=== PATIENT | male | born 1945 | race Caucasian/White ===

== ENCOUNTER 2017-05-18 11:18 | Outpatient (CLI) | payer MEDICARE, OTHER | END 2017-05-18 11:19 | disposition home or self-care (01) | LOC: SC 11:18 | PROVIDERS: ATTEND Nurse Practitioner Family | DX: G47.33 Obstructive sleep apnea (adult) (pediatric) (principal) | CPT/HCPCS: 99214; G0463; 99212 ==

== ENCOUNTER 2017-06-27 11:32 | Outpatient (CLI) | payer MEDICARE, OTHER | END 2017-06-27 11:33 | disposition home or self-care (01) | LOC: SC 11:32 | PROVIDERS: ATTEND Nurse Practitioner Family | DX: G47.33 Obstructive sleep apnea (adult) (pediatric) (principal) | CPT/HCPCS: 99213; G0463; 99212 ==

== ENCOUNTER 2018-06-27 10:07 | Outpatient (CLI) | payer MEDICARE, OTHER | END 2018-06-27 10:08 | disposition home or self-care (01) | LOC: SC 10:07 | PROVIDERS: ATTEND Nurse Practitioner Family | DX: G47.33 Obstructive sleep apnea (adult) (pediatric) (principal) | CPT/HCPCS: 99214; G0463; 99212 ==

== ENCOUNTER 2018-11-23 00:28 | Outpatient (CLI) | payer MEDICARE, OTHER | END 2018-11-23 00:29 | disposition critical access hospital (66) | LOC: EMS 00:28 | PROVIDERS: ATTEND Surgery | DX: R04.0 Epistaxis (principal) | CPT/HCPCS: A0425; A0429 ==

== ENCOUNTER 2018-11-23 00:43 | Emergency (ER) | payer MEDICARE, OTHER ==
--- NOTE | 2018-11-23 01:55 | ED Physician Documentation ---
PD HPI HEENT - Stated complaint Stated Complaint: EPISTAXIS - Chief complaint Chief Complaint: Heent - History obtained from History obtained from: Patient, EMS - History of Present Illness Timing - onset: Today (He has been having some nasal congestion with nose blowing over the last several days. Today he blew his nose and had a brief nosebleed which stopped after a few minutes. He then blew his nose again just about 1/2-hour before coming and had a significant nosebleed that did not stop with pinching. It did seem to taper some. But when he pinched his nose it then went from just the left side to the right side and down the back of his throat. He does not take any blood thinners.) Timing - duration: Minutes (30) Timing - details: Abrupt onset, Still present Location: Nose (Nosebleed from the left nostril.) Associated symptoms: Congestion. No: Fever, Swollen nodes Similar symptoms before: Has not had sx before Review of Systems Constitutional: denies: Fever Nose: reports: Rhinorrhea / runny nose, Congestion Throat: denies: Sore throat Respiratory: denies: Cough GI: denies: Nausea, Vomiting, Diarrhea Neurologic: denies: Focal weakness, Near syncope PD PAST MEDICAL HISTORY - Past Medical History Past Medical History: Yes Cardiovascular: Hypertension Respiratory: None Neuro: None Endocrine/Autoimmune: None GI: None : Benign prostate hypertrophy HEENT: None Psych: None Musculoskeletal: None Derm: None - Past Surgical History Past Surgical History: Yes General: Colonoscopy - Present Medications Home Medications: Ambulatory Orders Medication Instructions Recorded Confirmed Loratadine [Claritin] 10 mg PO 02/07/13 02/07/13 Multivitamin/Iron/Folic Acid 1 each PO 02/07/13 02/07/13 [Centrum Complete Multivit Tab] RX: Amlodipine Besylate 10 mg PO 02/07/13 02/07/13 RX: Carvedilol 25 mg PO 02/07/13 02/07/13 Sertraline [Zoloft] 100 mg PO DAILY 02/07/13 02/07/13 Simvastatin [Zocor] 20 mg PO 02/07/13 02/07/13 Telmisartan/Hydrochlorothiazid 1 each PO 02/07/13 02/07/13 [Micardis Hct 80-25 mg Tablet] Ubidecarenone [Co Q-10] 10 mg PO 02/07/13 02/07/13 Metformin HCl [Fortamet] 500 mg PO BID 07/24/13 07/24/13 Fluticasone [Flonase] 1 sprays ALCON DAILY #1 bottle 11/23/18 - Allergies Allergies/Adverse Reactions: Allergies Allergy/AdvReac Type Severity Reaction Status Date / Time sulfamethoxazole Allergy Unknown unknown Verified 11/23/18 02:12 [From Sulfamethoprim] trimethoprim Allergy Unknown unknown Unverified 02/06/13 13:40 [From Sulfamethoprim] - Social History Does the pt smoke?: No Smoking Status: Former smoker Does the pt drink ETOH?: Yes Does the pt have substance abuse?: No - Immunizations Immunizations are current?: Yes - POLST Patient has POLST: No PD ED PE NORMAL - Vitals Vital signs reviewed: Yes - General General: Alert and oriented X 3, Well developed/nourished, Other (The nosebleed has mainly stopped after pinching of his nostril from nursing triage to the time of my seeing him over a few minutes later.) - HEENT HEENT: Pharynx benign, Other (Left medial wall of the nares shows focal area of inflammation and there was raised blood vessel that was the source of bleeding. There is some mild mucosal inflammation generally in both nostrils otherwise. This the neck is supple without adenopathy.) - Neck Neck: Supple, no meningeal sign, No adenopathy - Derm Derm: Normal color, Warm and dry - Neuro Neuro: Alert and oriented X 3, No motor deficit, Normal speech Results - Vitals Vitals: Vital Signs - 24 hr 11/23/18 11/23/18 00:47 03:23 Temperature 37.2 C 36.6 C Heart Rate 94 85 Respiratory 20 20 Rate Blood Pressure 174/93 H 170/86 H O2 Saturation 93 93 Oxygen O2 Source Room air Procedures - Epistaxis Site: Left, Anterior Preparation: Clots removed, Lidocaine, Clamp / pressure applied Treatment: Silver Nitrate, Packing inserted Other: Observed - no bleeding, Pt tolerated well, O2 sat WNL Departure - Departure Disposition: 01 Home, Self Care Clinical Impression: Acute anterior epistaxis Condition: Stable Record reviewed to determine appropriate education?: Yes Instructions: Nosebleed Prescriptions: Fluticasone [Flonase] 1 sprays ALCON DAILY #1 bottle Comments: Leave the foam packing in the nostril until tomorrow dinnertime or evening before bed. You can moisten it slightly before pulling it out gently. Recheck if recurrent nosebleed. Once the packing is out, you can use some saline nose spray several times a day to help moisten the nasal passageway. He could also use a little Vaseline on a Q-tip once daily to the inside wall of the nose to keep it from being dried out as well. Follow-up with your primary care as needed regarding allergies. You could use steroid nasal spray daily to help reduce some of the nasal allergies you been having as well. Discharge Date/Time: 11/23/18 03:31
[2018-11-23] MEDS ORDERED: TRANEXAMIC ACID 1,000 MG/10 ML VIAL NAS STA (02:00)
[2018-11-23 03:25] VITALS: BP 170/86
== END 2018-11-23 03:31 | disposition home or self-care (01) ==
LOC: EDUNIT# → ED 00:43
DX: R04.0 Epistaxis (principal)
CPT/HCPCS: 99283

== ENCOUNTER 2018-11-23 19:34 | Emergency (ER) | payer MEDICARE, OTHER ==
[2018-11-23 19:42] VITALS: BP 160/89
--- NOTE | 2018-11-23 19:51 | ED Physician Documentation ---
PD HPI HEENT - Stated complaint Stated Complaint: NOSE BLEED - Chief complaint Chief Complaint: Heent - History obtained from History obtained from: Patient - History of Present Illness Timing - onset: Today (Seen here for a nosebleed yesterday, was cauterized and had packing in place. He was advised to remove the packing today and everything was going okay until just prior to arrival and it started bleeding again.) Review of Systems Constitutional: denies: Fever, Chills Ears: denies: Ear pain Nose: reports: Rhinorrhea / runny nose, Congestion, Epistaxis PD PAST MEDICAL HISTORY - Past Medical History Past Medical History: Yes Cardiovascular: Hypertension Respiratory: None Neuro: None Endocrine/Autoimmune: None GI: None : Benign prostate hypertrophy HEENT: None Psych: None Musculoskeletal: None Derm: None - Past Surgical History Past Surgical History: Yes General: Colonoscopy - Present Medications Home Medications: Ambulatory Orders Medication Instructions Recorded Confirmed Amlodipine Besylate 10 mg PO 02/07/13 02/07/13 Carvedilol 25 mg PO 02/07/13 02/07/13 Loratadine [Claritin] 10 mg PO 02/07/13 02/07/13 Multivitamin/Iron/Folic Acid 1 each PO 02/07/13 02/07/13 [Centrum Complete Multivit Tab] Sertraline [Zoloft] 100 mg PO DAILY 02/07/13 02/07/13 Simvastatin [Zocor] 20 mg PO 02/07/13 02/07/13 Telmisartan/Hydrochlorothiazid 1 each PO 02/07/13 02/07/13 [Micardis Hct 80-25 mg Tablet] Ubidecarenone [Co Q-10] 10 mg PO 02/07/13 02/07/13 Metformin HCl [Fortamet] 500 mg PO BID 07/24/13 07/24/13 Fluticasone [Flonase] 1 sprays ALCON DAILY #1 bottle 11/23/18 - Allergies Allergies/Adverse Reactions: Allergies Allergy/AdvReac Type Severity Reaction Status Date / Time sulfamethoxazole Allergy Unknown unknown Verified 11/23/18 19:40 [From Sulfamethoprim] trimethoprim Allergy Unknown unknown Verified 11/23/18 19:40 [From Sulfamethoprim] - Social History Does the pt smoke?: No Smoking Status: Never smoker Does the pt drink ETOH?: Yes Does the pt have substance abuse?: No - Immunizations Immunizations are current?: Yes - POLST Patient has POLST: No PD ED PE NORMAL - Vitals Vital signs reviewed: Yes - General General: Alert and oriented X 3, No acute distress - HEENT HEENT: Other (Active bleeding from a knuckle of vein on L keisselbach's plexus) - Neuro Neuro: Alert and oriented X 3, Normal speech Results - Vitals Vitals: Vital Signs - 24 hr 11/23/18 19:38 Temperature 36.6 C Heart Rate 88 Respiratory 18 Rate Blood Pressure 160/89 H O2 Saturation 94 Oxygen O2 Source Room air Procedures - Epistaxis Site: Left, Anterior Preparation: Clots removed Treatment: Silver Nitrate Other: Observed - no bleeding, Pt tolerated well Departure - Departure Disposition: 01 Home, Self Care Clinical Impression: Acute anterior epistaxis Condition: Good Record reviewed to determine appropriate education?: Yes Instructions: Nosebleed Comments: Followup with your ENT next week, return for new or worsening symptoms.
== END 2018-11-23 20:27 | disposition home or self-care (01) ==
LOC: ED 19:34
DX: R04.0 Epistaxis (principal); I10 Essential (primary) hypertension
CPT/HCPCS: 30901; 99283

== ENCOUNTER 2019-07-23 08:30 | Outpatient (CLI) | payer MEDICARE, OTHER ==
--- NOTE | 2019-07-23 09:38 | SLEEP CARE CONSULTATION ---
Information from patient questionnaire entered by Maricruz Rosales. I have reviewed and concur with the information entered by Maricruz Rosales. This document represents the service I personally performed and the decisions made by me, Anna Kelsey, RN, MSN, [employer]. History of Present Illness Previous diagnosis: Severe, Obstructive Sleep Apnea-Hypopnea Syndrome AHI: 38.6 Reason for follow up: annual (last seen 2018) Equipment type: CPAP Equipment obtained from: [facility] (having difficulty getting supplies despite repeated attempts and would like to transfer.) Mask style: Nasal (Wisp) Mask brand: Respironics Backup mask available: Yes Last cushion change: 1 month ago - but tries to change every 2 weeks. CPAP Compliance Data - Data Reviewed with Patient Average duration of nightly device use: 7.8 Compliance rate %: 98.9 (180 days) Current pressure setting (cmH2O): 15-17 Humidity settin Heated hose settin Average residual AHI: 3.3 Average large leak: 1 hr 5 min 52 sec Subjective Patient concerns: reports: air blowing in eyes (when mask headgear wears out. ), dry mouth, nose, throat (mild but prefers not to use the humidity. ), epistaxis (severe 6 months ago and was cauterized with no recurrence), other (headgear seems to wear out before can be replaced both in mask body and velcro ). denies: aerophagia, mask discomfort, mask leak noise, condensation in mask/hose, nasal congestion Observed to snore while using device: No Current pressure setting perceived as: comfortable On therapy, patient: reports: sleeping better, awakening more refreshed, being more awake and alert during the day, more rested overall. denies: drowsiness while driving Initial [place] Sleepiness Scale score: 16 Current [place] Sleepiness Scale score: 13 Allergies and Home Medications Known drug allergies: Yes Drug allergies reviewed: Yes Home medication list reviewed: Yes (see list / changes made) Allergy and home medication list: Co Q10 10mg daily Telmisartan / hydrochlothiazide 80/25mg daily Simvastatin 20mg daily Centrum daily Meformin 500mg bid loratadine 10mg daily Fluticasone daily nasal spray Carvediolol 25mg daily Amlodipine 10mg dialy aspirin 81 mg daily gabapentin 300mg 2 at bedtime. Review of Systems Review of systems same as previous: Yes Physical Exam Blood Pressure: 150/80 Cuff size: long Heart Rate: 81 O2 Saturation: 95 Height: 5 ft 10.5 in Weight: 316 lb Weight change since last visit: gained 3 pounds Body Mass Index: 44.6 BMI Classification: Obesity Class 3 Impression and Plan 1. Obstructive Sleep Apnea-Hypopnea Syndrome, severe, with good treatment compliance and good apnea control. On CPAP therapy, the patient has better sleep quality and is more rested overall. Since he does not use the humidity, I advised to use the sample of saline nasal spray to use prior to CPAP and as needed during the day. For his headgear concerns, I showed him other styles. All seemed to have similar headgear. Thus I advised how can add velcro to his old ones if needed for better connection. He could also buy online out of pocket if headgear too worn before due for insurance. He is also encouraged to change his mask cushions every 2 weeks when able to get supplies to maintain seal to reduce mask leaks. Washing mask daily instead of every few days can also improve seal. For convenience he can buy CPAP wipes. Since he is having difficulty getting supplies, I will have him discuss his other DME options and a DWO will be written. He can track the mask leaks on his CPAP as shown. It is hoped that his mask will fit better and reduce mask leaks to disrupt his sleep. Patient's apnea severity and rationale for treatment to reduce apnea, improve sleep quality and reduce cardiovascular and cerebrovascular events was reviewed. I also reviewed the benefit of consistent device use of CPAP for hypertension, cardiac disease, diabetes. We also discussed his weight and how it affects his apnea risk and CPAP requirements as well as overall health. He was advised to lose weight. He can discuss with PCP his weight loss goals. * Continue CPAP pressure at 15-17 cmH2O * Transfer of Care * Implement methods to reduce mask leaks. * Notify me if snoring with mask or feeling that the pressure is too much or too little * Attempt to lose weight * Call this office if any problems using CPAP * Return for follow up in 1 year, or sooner if concerns arise Time Spent with Patient (minutes): 30 I spent 100% of this visit face to face with the patient with greater than 50% of this was spent time counseling the patient and coordination of care.
[2019-07-23 09:39] VITALS: BP 150/80
== END 2019-07-23 08:31 | disposition home or self-care (01) ==
LOC: SC 08:30
PROVIDERS: ATTEND Nurse Practitioner Family
DX: G47.33 Obstructive sleep apnea (adult) (pediatric) (principal); E66.9 Obesity, unspecified; Z68.41 Body mass index [BMI] 40.0-44.9, adult
CPT/HCPCS: 99214; G0463; 99212

== ENCOUNTER 2020-08-06 16:22 | Outpatient (CLI) | payer MEDICARE, OTHER ==
--- NOTE | 2020-08-06 15:05 | SLEEP CARE CONSULTATION ---
Information from patient questionnaire entered by Maricruz Rosales. I have reviewed and concur with the information entered by Maricruz Rosales. This document represents the service I personally performed and the decisions made by me, Anna Kelsey, RN, MSN, DIRECTOR OF PROVIDER RELATIONS. History of Present Illness Service Date and Time: 08/06/2020 1430 Previous diagnosis: Severe, Obstructive Sleep Apnea-Hypopnea Syndrome AHI: 38.6 (in 2014) Reason for follow up: annual (last seen 07/2019) Equipment type: CPAP Equipment obtained from: [employer] (transfer went well - getting supplies as needed) Mask style: Nasal Mask brand: Respironics (Wisp) Backup mask available: Yes (old mask with headgear ) Prior sleep studies: Yes Year and Where: 2014 - [facility] Sleep Type of Sleep Study: Polysomnography CPAP Compliance Data - Data Reviewed with Patient Average duration of nightly device use: 8 hr 5 min Compliance rate %: 98.9 (180 days) Current pressure setting (cmH2O): 15-17 Humidity settin Heated hose settin Average residual AHI: 2.5 Average large leak: 38 min Subjective Patient concerns: reports: air blowing in eyes (when mask gets old ), nasal congestion (chronic but doesnt interfer CPAP use), other (stopped humidity use long time ago and no further epitaxis since cauterization last year.). denies: aerophagia (rationale discussed why to call office if symptoms ), mask discomfort, mask leak noise, condensation in mask/hose, dry mouth, nose, throat, epistaxis Observed to snore while using device: No Current pressure setting perceived as: comfortable On therapy, patient: reports: sleeping better, awakening more refreshed, being more awake and alert during the day, more rested overall. denies: drowsiness w hile driving Initial [place] Sleepiness Scale score: 16 (in 2015) Allergies and Home Medications Known drug allergies: Yes Home medication list reviewed: No (no changes ) Review of Systems Review of systems same as previous: No (increased fatigue/ thirst and urination ) Physical Exam Height: 5 ft 10.5 in Weight: 316 lb (no change) Body Mass Index: 44.6 BMI Classification: Morbidly Obese Impression and Plan 1. Obstructive Sleep Apnea-Hypopnea Syndrome, severe, with good treatment compliance and good apnea control. On CPAP therapy, the patient has better sleep quality and is more rested overall. To reduce mask leaks, patient advised change cushions more often. I also reviewed again how he can add extra velcro to his headgear when it wears out or buy another out of pocket. Nasal congestion can be reduced with restarting the CPAP humidity as discussed. Saline nasal spray sample was also given to use prior to CPAP to clear nasal secretions and wash off any nasal allergens to facilitate nasal breathing. In addition, a steamy shower before bed will often assist nasal drainage. Patient's apnea severity and rationale for treatment to reduce apnea, improve sleep quality and reduce cardiovascular and cerebrovascular events was reviewed. I also reviewed the benefit of consistent device use of CPAP for hypertension. Because patient has significant apnea in supine and unknown in other positions of sleep, if unable to use CPAP due to illness of lack of electricity, patient advised to raise head of bed 30-40 degrees to decrease some apnea risk. Patient states he has slept in a recliner with head raised slightly for 25 years and rarely sleeps on his side due to discomfort. 2. Fatigue, reports extreme fatigue for past few days and slept most of day with CPAP 12 hours use noted on compliance. States fatigue now better. No temperature. No sore throat. But he has started drinking a lot of water and urinating every hour at night and day for several days. His appetite is also diminished. Thus I advised patient to contact his provider today or go to urgent care today with rationale discussed. I explained that he need to be checked for high blood sugar or other medical condition. Patient states " pre diabetic and takes metformin, no increase in weight. " He agreed with plan and will call Dr Hogue after this visit and told to inform of symptoms. I informed him I would also call to inform office of reason he needs to be seen ARVIND. * Continue auto CPAP pressure at 15-17 cmH2O * Notify me if snoring with mask or feeling that the pressure is too much or too little * Attempt to lose weight * Follow up with PCP or urgent care today * Call this office if any problems using CPAP * Return for follow up in 1 year , or sooner if concerns arise * * Addendum: 1511 I called the patient's PCP office and spoke to Shayna and notified that I advised patient to call office to be seen today by PCP or in urgent care. I explained that I was concerned he was exhibiting signs of high blood sugar and symptoms given. She stated patient called but did not state why and appointment made office. She will call back and schedule with a PA today. * Counseling Topics: Sleeping position Visit Type: Telehealth Phone (doximity) Patient Location: Home Location of Provider: Home Patient agrees and consents to this telehealth visit type: Yes Patient agrees to have their insurance billed: Yes Time Spent with Patient (minutes): 30 plus 5 minutes call to PCP and 10 minutes additional documentation. Provider Statement: I spent 100% of the Telehealth Phone Call with the patient with greater than 50% spent counseling the patient and coordination of care.
== END 2020-08-06 16:23 | disposition home or self-care (01) ==
LOC: SC 16:22
PROVIDERS: ATTEND Nurse Practitioner Family
DX: G47.33 Obstructive sleep apnea (adult) (pediatric) (principal); E66.01 Morbid (severe) obesity due to excess calories; Z68.41 Body mass index [BMI] 40.0-44.9, adult; R53.83 Other fatigue

== ENCOUNTER 2021-04-02 10:51 | Outpatient (CLI) | payer MEDICARE, OTHER ==
--- NOTE | 2021-04-02 11:24 | SLEEP CARE CONSULTATION ---
Information from patient questionnaire entered by Maricruz Rosales. I have reviewed and concur with the information entered by Maricruz Rosales. This document represents the service I personally performed and the decisions made by , Alissa Grubbs ARNP. History of Present Illness Service Date and Time: 04/02/2021 1051 Previous diagnosis: Severe, Obstructive Sleep Apnea-Hypopnea Syndrome AHI: 38.6 (in 2014) Reason for follow up: other (8 month - CPAP recall) Equipment type: CPAP Equipment obtained from: [employer] (getting supplies as needed, cant take a couple weeks to get them) Mask style: Nasal (over the nose) Backup mask available: Yes (old mask) Last cushion change: 2 weeks Prior sleep studies: Yes Year and Where: 2014 - Located [facility] Sleep Type of Sleep Study: Polysomnography HPI additional information: KAROL MORRISON was diagnosed to have severe, AHI 38.6, obstructive sleep apnea- hypopnea syndrome and returned today for CPAP therapy 8 month follow-up. CPAP Compliance Data - Data Reviewed with Patient Average duration of nightly device use: 8 hours 14 minutes Compliance rate %: 98.9 Current pressure setting (cmH2O): 15-17 Humidity settin Heated hose settin Average residual AHI: 2.2 Average large leak: 11 minutes 3 seconds Subjective Patient concerns: reports: air blowing in eyes (when headgear gets stretched out it will leak in his eyes). denies: aerophagia, mask discomfort, mask leak noise, condensation in mask/hose, nasal congestion, dry mouth, nose, throat, epistaxis, other Observed to snore while using device: No Current pressure setting perceived as: too low On therapy, patient: reports: sleeping better, awakening more refreshed, being m ore awake and alert during the day, more rested overall. denies: drowsiness while driving Initial [place] Sleepiness Scale score: 16 (in 2015) Current [place] Sleepiness Scale score: 15 Allergies and Home Medications Home medication list reviewed: Yes (no changes) Review of Systems Review of systems same as previous: Yes (no changes) Physical Exam Heart Rate: 81 O2 Saturation: 97 Height: 5 ft 10 in Weight: 300 lb Body Mass Index: 43.0 BMI Classification: Morbidly Obese Impression and Plan 1. Obstructive Sleep Apnea-Hypopnea Syndrome, severe, with good treatment compliance and good apnea control. On CPAP therapy, the patient has better sleep quality and is more rested overall. Patient cannot sleep without his device and he states he heard about the recall and would like to get a new updated device. Patient was encouraged to register their device online with [employer] for the recall to see if their device is affected. If their device is affected they should start a claim. Patient denies any black particles seen in machine or hoses, any unusual odors coming from device. Patient has not experienced any physical symptoms such as upper airway irritation, headache, skin or eye irritation, asthma, nausea/vomiting, difficulty breathing or chest pain. Since the patients current machine is at least 5 years old the patient is opting to update their device with a device that is not on the recall. Patient voiced understanding and agreement with plan. Patient feels that his pressure is a little low and would like a little more pressure. I will adjust his pressure to 15-18 cmH2O. Patient was encouraged to lose weight for their overall health and to reduce apneas. Patient has a lot of back pain and this limits his ability to exercise. I encouraged him to try to make better, more nutritious food choices. Patient voiced understanding and agreement with plan. Patient's apnea severity and rationale for treatment to reduce apnea, improve sleep quality and reduce cardiovascular and cerebrovascular events was reviewed. I also reviewed the benefit of consistent device use of CPAP for hypertension. * Update device and supplies * Change auto CPAP pressure to 15-18 cmH2O * Notify me if snoring with mask or feeling that the pressure is too much or too little * Attempt to lose weight * Call this office if any problems using CPAP * Return for follow up one month after obtaining new device, or sooner if concerns arise Counseling Topics: Spare mask, Weight loss health impact Visit Type: In Office Time Spent with Patient (minutes): 22 Provider Statement: I spent 100% of the Face to Face Visit with the patient with greater than 50% spent counseling the patient and coordination of care.
== END 2021-04-02 10:52 | disposition home or self-care (01) ==
LOC: SC 10:51
PROVIDERS: ATTEND Nurse Practitioner Family
DX: G47.33 Obstructive sleep apnea (adult) (pediatric) (principal); E66.01 Morbid (severe) obesity due to excess calories; Z68.41 Body mass index [BMI] 40.0-44.9, adult
CPT/HCPCS: 99213; G0463; 99212

== ENCOUNTER 2021-06-25 03:21 | Outpatient (CLI) | payer MEDICARE, OTHER | END 2021-06-25 03:22 | disposition critical access hospital (66) | LOC: EMS 03:21 | DX: U07.1 COVID-19 (principal) | CPT/HCPCS: A0425; A0429 ==

== ENCOUNTER 2021-06-25 03:41 | Inpatient (IN) | payer MEDICARE, OTHER ==
--- NOTE | 2021-06-25 03:41 | ED Physician Documentation ---
PD HPI DYSPNEA - Stated complaint Stated Complaint: C+/SOA - History obtained from History obtained from: Patient, EMS - History of Present Illness Timing - onset: How many weeks ago (2) Timing - details: Gradual onset, Constant Pain level max: 0 Pain level now: 0 Improved by: O2, Rest Associated symptoms: Fever, Cough. No: Chest pain / discomfort Similar symptoms before: Has not had sx before Recently seen: Not recently seen - Additional information Additional information: BIBA for chief complaint of dyspnea x 2 weeks, steadily worsening since onset. At symptom onset, he took a home COVID-19 test which patient says was positive for COVID. EMS note that patient's pulse ox was 85% on room air on their arrival, improved to 94-95% with 6 liters oxygen via NC. Patient uses CPAP for sleep apnea but otherwise does not have pulmonary diagnoses such as asthma or COPD and does not use oxygen at home. He is not COVID vaccinated Review of Systems Constitutional: reports: Fever, Chills, Sweats Eyes: reports: Reviewed and negative Ears: reports: Reviewed and negative Nose: reports: Reviewed and negative Throat: reports: Reviewed and negative Cardiac: reports: Reviewed and negative Respiratory: reports: Dyspnea, Cough. denies: Hemoptysis, Wheezing GI: reports: Reviewed and negative : reports: Reviewed and negative Skin: reports: Reviewed and negative Musculoskeletal: reports: Reviewed and negative Neurologic: reports: Reviewed and negative PD PAST MEDICAL HISTORY - Past Medical History Past Medical History: Yes Cardiovascular: Hypertension, High cholesterol Endocrine/Autoimmune: Type 1 diabetes - Past Surgical History Past Surgical History: No - Present Medications Home Medications: Ambulatory Orders Medication Instructions Recorded Confirmed Amlodipine Besylate 10 mg PO DAILY 02/07/13 08/18/20 Carvedilol 25 mg PO BID 02/07/13 08/18/20 Loratadine [Claritin] 10 mg PO BID 02/07/13 08/18/20 Multivitamin/Iron/Folic Acid 1 each PO DAILY 02/07/13 08/18/20 [Centrum Complete Multivit Tab] Simvastatin [Zocor] 20 mg PO DAILY 02/07/13 08/18/20 Ubidecarenone [Co Q-10] 100 mg PO DAILY 02/07/13 08/18/20 Metformin HCl [Fortamet] 1,000 mg PO BID 07/24/13 08/18/20 Aspirin [Nagi] 325 mg PO DAILY 08/18/20 08/18/20 Gabapentin [Neurontin] 600 mg PO DAILY 08/18/20 08/18/20 Telmisartan [Micardis] 80 mg PO DAILY 08/18/20 08/18/20 hydroCHLOROthiazide 25 mg PO DAILY 08/18/20 08/18/20 [Hydrochlorothiazide] Insulin Glargine [Lantus Solostar] 15 units .ROUTE QPM 06/25/21 - Allergies Allergies/Adverse Reactions: Allergies Allergy/AdvReac Type Severity Reaction Status Date / Time sulfamethoxazole Allergy Intermediate Hives Verified 06/25/21 04:44 [From Sulfamethoprim] trimethoprim Allergy Unknown unknown Verified 06/25/21 04:44 [From Sulfamethoprim] - Living Situation Living Situation: reports: With spouse/s.o. Living Arrangement: reports: At home PD ED PE NORMAL - Vitals Vital signs reviewed: Yes - General General: Alert and oriented X 3, Other (obese; tachypneic but able to speak in full sentences. appears anxious) - Cardiac Cardiac: RRR, No murmur - Abdomen Abdomen: Soft, Non tender - Derm Derm: Normal color, Warm and dry PD ED PE EXPANDED - Respiratory Respiratory: Decreased breath sounds, Other (course breath sounds bilaterally) - Extremities Extremities: Pedal edema bilateral Results - Vitals Vitals: Vital Signs - 24 hr 06/25/21 06/25/21 06/25/21 03:46 03:57 04:17 Temperature 38.5 C H Heart Rate 90 88 Respiratory 29 H 29 H 25 H Rate Blood Pressure 160/90 H 160/90 H O2 Saturation 96 96 97 Oxygen O2 Source Nasal cannula Oxygen Flow Rate 6 - EKG (time done) No standard instances Rate: Rate (enter#) (85) Rhythm: NSR Harper: LAD Intervals: Normal NM QRS: Normal Ischemia: Normal ST segments - Labs Labs: Laboratory Tests 06/25/21 06/25/21 06/25/21 04:03 04:03 04:03 WBC 5.9 RBC 3.90 L Hgb 11.5 L Hct 33.3 L MCV 85.4 MCH 29.5 MCHC 34.5 RDW 14.8 Plt Count 227 MPV 10.7 Neut # (Auto) 4.7 Lymph # (Auto) 0.8 L Williamson # (Auto) 0.3 Eos # (Auto) 0.0 Baso # (Auto) 0.0 Absolute Nucleated RBC 0.00 Nucleated RBC % 0.0 Sodium 137 Potassium 2.7 L Chloride 93 L Carbon Dioxide 27 Anion Gap 17.0 H BUN 46 H Creatinine 1.3 H Estimated GFR (MDRD) 54 L Glucose 145 H Calcium 8.5 Total Bilirubin 1.1 H AST 57 H ALT 32 Alkaline Phosphatase 70 Troponin I High Sens 40.1 H* Total Protein 6.9 Albumin 3.7 Globulin 3.2 Albumin/Globulin Ratio 1.2 Lipase 41 Nasal Adenovirus (PCR) Nasal B. parapertussis DNA (PCR) Nasal Coronavir 229E PCR Nasal Coronavir HKU1 PCR Nasal Coronavir NL63 PCR Nasal Coronavir OC43 PCR Nasal Enterovir/Rhinovir PCR Nasal Influenza B PCR Nasal Influenza A PCR Nasal Parainfluen 1 PCR Nasal Parainfluen 2 PCR Nasal Parainfluen 3 PCR Nasal Parainfluen 4 PCR Nasal RSV (PCR) Nasal B.pertussis DNA PCR Nasal C.pneumoniae (PCR) Antonio Human Metapneumo PCR Nasal M.pneumoniae (PCR) Nasal SARS-CoV-2 (PCR) 06/25/21 04:05 WBC RBC Hgb Hct MCV MCH MCHC RDW Plt Count MPV Neut # (Auto) Lymph # (Auto) Williamson # (Auto) Eos # (Auto) Baso # (Auto) Absolute Nucleated RBC Nucleated RBC % Sodium Potassium Chloride Carbon Dioxide Anion Gap BUN Creatinine Estimated GFR (MDRD) Glucose Calcium Total Bilirubin AST ALT Alkaline Phosphatase Troponin I High Sens Total Protein Albumin Globulin Albumin/Globulin Ratio Lipase Nasal Adenovirus (PCR) NOT DETECTED Nasal B. parapertussis DNA (PCR) NOT DETECTED Nasal Coronavir 229E PCR NOT DETECTED Nasal Coronavir HKU1 PCR NOT DETECTED Nasal Coronavir NL63 PCR NOT DETECTED Nasal Coronavir OC43 PCR NOT DETECTED Nasal Enterovir/Rhinovir PCR NOT DETECTED Nasal Influenza B PCR NOT DETECTED Nasal Influenza A PCR NOT DETECTED Nasal Parainfluen 1 PCR NOT DETECTED Nasal Parainfluen 2 PCR NOT DETECTED Nasal Parainfluen 3 PCR NOT DETECTED Nasal Parainfluen 4 PCR NOT DETECTED Nasal RSV (PCR) NOT DETECTED Nasal B.pertussis DNA PCR NOT DETECTED Nasal C.pneumoniae (PCR) NOT DETECTED Antonio Human Metapneumo PCR NOT DETECTED Nasal M.pneumoniae (PCR) NOT DETECTED Nasal SARS-CoV-2 (PCR) DETECTED A - Rads (name of study) chest xray Radiology: Prelim report reviewed, See rad report PD MEDICAL DECISION MAKING - ED course Complexity details: reviewed results, re-evaluated patient, considered differential, d/w patient ED course: Respiratory PCR confirms patient is COVID positive. 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 CXR shows bilateral streaky infiltrates. Given decadron IV as well as IV ofirmev for fever. D/W Dr. Fermin, will admit for futher treatment and observation Departure - Departure Disposition: [facility] DC/Xfer Clinical Impression: Pneumonia due to COVID-19 virus Condition: Serious Discharge Date/Time: 06/25/21 05:52
[2021-06-25] MEDS ORDERED: DEXAMETHASONE 10 MG/ML VIAL IVP STA (03:52)
[2021-06-25 04:11] LABS: BASOPHILS % (AUTO) 0.2 %; HCT - HEMATOCRIT 33.3 % (42.0-52.0); HGB - HEMOGLOBIN 11.5 g/dL (14.0-18.0); LYMPHOCYTES # (AUTO) 0.8 10^3/uL (1.5-3.5); LYMPHOCYTES % (AUTO) 13.7 %; MEAN CORPUSCULAR HEMOGLOBIN 29.5 pg (27.0-31.0); MEAN CORPUSCULAR HGB CONC 34.5 g/dL (32.0-36.0); MEAN CORPUSCULAR VOLUME 85.4 fL (80.0-94.0); MEAN PLATELET VOLUME 10.7 fL (7.4-11.4); MONOCYTES # (AUTO) 0.3 10^3/uL (0.0-1.0); MONOCYTES % (AUTO) 4.9 %; NEUTROPHILS # (AUTO) 4.7 10^3/uL (1.5-6.6); NEUTROPHILS % (AUTO) 80.4 %; PLT - PLATELET COUNT 227 10^3/uL (130-450); RED CELL DISTRIBUTION WIDTH 14.8 % (12.0-15.0); WHITE BLOOD COUNT 5.9 x10^3/uL (4.8-10.8)
[2021-06-25] MEDS ORDERED: ONDANSETRON 4 MG/2 ML VIAL IVP PRN (04:24)
[2021-06-25] MEDS ORDERED: SODIUM CHLORIDE FLUSH 0.9% 10 ML SYRINGE IVP PRN (04:24)
[2021-06-25] MEDS ORDERED: ONDANSETRON ODT 4 MG TABLET TL PRN (04:24)
[2021-06-25] MEDS ORDERED: ACETAMINOPHEN 1,000 MG/100 ML 100 ML IV STA (04:24)
[2021-06-25 04:31] LABS: ALBUMIN 3.7 g/dL (3.2-5.5); ALBUMIN/GLOBULIN RATIO 1.2 (1.0-2.2); BILIRUBIN,TOTAL 1.1 mg/dL (0.2-1.0); CALCIUM 8.5 mg/dL (8.5-10.3); CREATININE 1.3 mg/dL (0.6-1.2); POTASSIUM 2.7 mmol/L (3.5-5.0); TOTAL PROTEIN 6.9 g/dL (6.7-8.2)
[2021-06-25] MEDS ORDERED: POTASSIUM CHLORIDE 20 MEQ TABLET PO STA (04:33)
[2021-06-25 05:07] LABS: CORONAVIRUS 229E-RESP PCR NOT DETECTED; CORONAVIRUS HKU1-RESP PCR NOT DETECTED; CORONAVIRUS NL63-RESP PCR NOT DETECTED; CORONAVIRUS OC43-RESP PCR NOT DETECTED
[2021-06-25 05:08] LABS: B. PARAPERTUSSIS- RESP PCR PAN NOT DETECTED; B. PERTUSSIS- RESP PCR PANEL NOT DETECTED; C. PNEUMONIAE- RESP PCR PANEL NOT DETECTED; HUMAN METAPNEUMOVIRUS NOT DETECTED; INFLUENZA A- RESP PCR PANEL NOT DETECTED; INFLUENZA B - RESP PCR PANEL NOT DETECTED; M. PNEUMONIAE- RESP PCR PANEL NOT DETECTED; PARAINFLUENZA VIRUS 1 NOT DETECTED; PARAINFLUENZA VIRUS 2 NOT DETECTED; PARAINFLUENZA VIRUS 3 NOT DETECTED; PARAINFLUENZA VIRUS 4 NOT DETECTED; RHINOVIRUS/ENTEROVIRUS NOT DETECTED; RSV- RESP PCR PANEL NOT DETECTED; SARS-CoV-2 -RESP PCR PANEL DETECTED
[2021-06-25 05:28] LABS: BASOPHILS % (AUTO) 0.1 %; EOSINOPHILS % (AUTO) 0.1 %; HCT - HEMATOCRIT 35.6 % (42.0-52.0); HGB - HEMOGLOBIN 12.1 g/dL (14.0-18.0); LYMPHOCYTES # (AUTO) 0.8 10^3/uL (1.5-3.5); LYMPHOCYTES % (AUTO) 10.8 %; MEAN CORPUSCULAR HEMOGLOBIN 29.4 pg (27.0-31.0); MEAN CORPUSCULAR VOLUME 86.6 fL (80.0-94.0); MEAN PLATELET VOLUME 10.9 fL (7.4-11.4); MONOCYTES # (AUTO) 0.3 10^3/uL (0.0-1.0); MONOCYTES % (AUTO) 4.1 %; NEUTROPHILS # (AUTO) 5.9 10^3/uL (1.5-6.6); NEUTROPHILS % (AUTO) 84.1 %; PLT - PLATELET COUNT 229 10^3/uL (130-450); RED BLOOD COUNT 4.11 10^6/uL (4.70-6.10); WHITE BLOOD COUNT 7.1 x10^3/uL (4.8-10.8)
[2021-06-25 05:36] LABS: CALCIUM 8.5 mg/dL (8.5-10.3); CREATININE 1.2 mg/dL (0.6-1.2); POTASSIUM 2.8 mmol/L (3.5-5.0)
[2021-06-25 05:52] LABS: CRP - C-REACTIVE PROTEIN 4.5 mg/dL (0-1.0)
--- NOTE | 2021-06-25 06:51 | HISTORY & PHYSICAL EXAMINATION ---
Chief Complaint - Chief Complaint Chief Complaint: Shortness of breath. History of Present Illness - Admitted From Admitted From:: Home - History Obtained From Records Reviewed: Yes History obtained from: Patient, ER Physician, EMR - History of Present Illness HPI Comment/Other: This is a 76-year-old male with a past medical history significant for hypertension and insulin-dependent diabetes mellitus, KATERINA on CPAP who presents today complaining of worsening shortness of breath. He states he was diagnosed with Covid about 2 weeks ago. At that time, his daughter and son-in-law were also ill with Covid. He states he began to feel short of breath but it has worsened over the past 2 weeks and so he came to the emergency department early this morning. He is not vaccinated. He reports having a poor appetite and decreased oral intake over the past 2 weeks. This past week he stopped taking his insulin because he was not eating very much and just felt miserable overall. He also has not been taking his home antihypertensives over the past week just due to feeling unwell. He states he does have KATERINA and is compliant with his CPAP. He must use it whenever he sleeps well she wakes up in chills and sweats. He denies any cardiac history including CHF, coronary artery disease. His legs are a little edematous and states this is his baseline. In the emergency department, he was noted to be febrile and hypoxic initially requiring 6 L of oxygen. Chest x-ray was consistent with pneumonia. He was given Decadron and medicine was consulted for admission. We discussed goals of care and he would like to be a DNR although he is okay with intubation as long as it is temporary. He would not want prolonged mechanical ventilation. History - Past Medical History Cardiovascular: reports: Hypertension, High cholesterol Respiratory: reports: Sleep apnea Neuro: reports: None Endocrine/Autoimmune: reports: Type 2 diabetes GI: reports: GERD : reports: Benign prostate hypertrophy HEENT: reports: None Psych: reports: None Musculoskeletal: reports: None Derm: reports: None MRSA Hx?: No - Past Surgical History General: reports: Colonoscopy - Family & Social History Family History Comment/Other: He reports both his parents had diabetes otherwise denies any other medical history. Living arrangement: At home Living Situation: With family Social History Notes: He lives with his , daughter, son-in-law, and granddaughter. He did smoke a pack a day for 10 years but quit 40 years ago. He denies alcohol use. - POLST Patient has POLST: No Meds/Allgy - Home Medications Home Medications: Ambulatory Orders Medication Instructions Recorded Confirmed Amlodipine Besylate 10 mg PO DAILY 02/07/13 08/18/20 Carvedilol 25 mg PO BID 02/07/13 08/18/20 Loratadine [Claritin] 10 mg PO BID 02/07/13 08/18/20 Multivitamin/Iron/Folic Acid 1 each PO DAILY 02/07/13 08/18/20 [Centrum Complete Multivit Tab] Simvastatin [Zocor] 20 mg PO DAILY 02/07/13 08/18/20 Ubidecarenone [Co Q-10] 100 mg PO DAILY 02/07/13 08/18/20 Metformin HCl [Fortamet] 1,000 mg PO BID 07/24/13 08/18/20 Aspirin [Nagi] 325 mg PO DAILY 08/18/20 08/18/20 Gabapentin [Neurontin] 600 mg PO DAILY 08/18/20 08/18/20 Telmisartan [Micardis] 80 mg PO DAILY 08/18/20 08/18/20 hydroCHLOROthiazide 25 mg PO DAILY 08/18/20 08/18/20 [Hydrochlorothiazide] Insulin Glargine [Lantus Solostar] 15 units .ROUTE QPM 06/25/21 - Allergies Allergies/Adverse Reactions: Allergies Allergy/AdvReac Type Severity Reaction Status Date / Time sulfamethoxazole Allergy Intermediate Hives Verified 06/25/21 04:44 [From Sulfamethoprim] trimethoprim Allergy Unknown unknown Verified 06/25/21 04:44 [From Sulfamethoprim] Review of Systems - Constitutional Constitutional: reports: Fatigue, Fever, Chills, Malaise, Poor appetite - Ears, Nose & Throat Ears, Nose & Throat: denies: Nasal discharge, Nasal congestion, Sore throat - Cardiovascular Cariovascular: reports: Edema, Lightheadedness, Exertional dyspnea, Decr. exercise tolerance. denies: Chest pain - Respiratory Respiratory: reports: Cough, SOB at rest, SOB with exertion. denies: Sputum production - Gastrointestinal Gastrointestinal: reports: Diarrhea, Poor appetite. denies: Abdominal pain, Nausea, Vomiting - Genitourinary Genitourinary: denies: Dysuria, Frequency, Urgency, Hematuria - Neurological Neurological: reports: Dizziness. denies: Focal weakness - Hematologic/Lymphatic Hematologic/Lymphatic: denies: Blood clots - All Other Systems All Other Systems: reports: Reviewed and negative Prior Level of Functionality: He is independent with his ADLs. Exam - Vital Signs Reviewed Vital Signs: Yes Vital Signs: Vital Signs x48h Temp Pulse Pulse Resp BP BP Pulse Ox 06/25/21 06:00 38.2 C H 78 21 119/72 94 06/25/21 05:00 87 33 H 95 06/25/21 04:17 25 H 97 06/25/21 03:57 38.5 C H 88 29 H 160/90 H 96 06/25/21 03:46 90 29 H 160/90 H 96 - Physical Exam General Appearance: positive: No acute distress, Alert Eyes Bilateral: positive: Normal inspection, Conjunctivae nml ENT: positive: ENT inspection nml, Other (Nasal cannula in place.) Neck: positive: Nml inspection Respiratory: positive: No respiratory distress, Other (Breath sounds diminished throughout. He is tachypneic but not in distress.) Cardiovascular: positive: Regular rate & rhythm. negative: Tachycardia, Systolic murmur Abdomen: positive: Non-tender, No distention. negative: Tenderness Skin: positive: Warm, Dry Extremities: positive: Pedal edema (Trace to +1 pitting edema in bilateral lower extremities.) Neurologic/Psychiatric: positive: Motor nml. negative: Disoriented to person, Disoriented to place Conclusion/Plan - Problem List (1) Acute respiratory failure with hypoxia Conclusion/Plan: This appears to be secondary to COVID-19 pneumonia. He does have +1 pitting edema in the lower extremities she will need to evaluate for CHF as well. We will continue him on Decadron 6 mg IV daily. We will start remdesivir. Check BNP and a D-dimer. If BNP is elevated and he will likely need diuresis and echocardiogram. If his D-dimer is elevated then we will obtain a CT angiogram to evaluate for pulmonary embolism. (2) Pneumonia due to COVID-19 virus Conclusion/Plan: This appears to be the cause of his respiratory failure. He was diagnosed only 2 weeks ago with COVID-19 and he is not vaccinated. I am hopeful given it has been 2 weeks since he was diagnosed that he will improve over the next few days. We will start him on Decadron and remdesivir. Continue contact precautions. (3) Elevated troponin Conclusion/Plan: His troponin is elevated at 40.1 and his EKG does suggest ST depressions in V2 through V6. Fortunately, he has no chest pain. We will trend his troponin and if it rises we will manage his as an NSTEMI but for the time being I suspect this is likely demand ischemia related to his respiratory failure. (4) Insulin dependent diabetes mellitus Conclusion/Plan: His blood glucose is currently controlled in the 140s which is somewhat surprising given he has not taken his insulin for over a week. Although he has not had much oral intake, I would expect his blood glucose to be elevated. He is on 120 units of Lantus twice daily. We will await pharmacy confirmation of this before initiating but we will place him on a sliding scale and monitor his blood glucose closely especially since he is on Decadron. Check an A1c. He will most definitely need Lantus and we will look to initiate this once we have a better idea of his insulin requirements. (5) Hypokalemia Conclusion/Plan: His potassium is decreased at 2.7. We will replace this orally and recheck. We will also check a magnesium. (6) Hypertension Conclusion/Plan: He is currently normotensive. We will hold his home antihypertensives for the time being. (7) CKD (chronic kidney disease) Conclusion/Plan: His BUN and creatinine are elevated slightly although it is not clear if this is acute kidney injury or CKD. I have no prior labs to compare to. We will gently hydrate him and recheck labs at noon. Qualifiers: Chronic kidney disease stage: stage 2 (mild) Qualified Code(s): N18.2 - Chronic kidney disease, stage 2 (mild) (8) KATERINA on CPAP Conclusion/Plan: Continue home CPAP. - Lab Results Lab results reviewed: Yes Fish Bones: 06/25/21 05:23 06/25/21 05:23 - Diagnostic Imaging Results Diagnostic Imaging Results: positive: Prelim report reviewed - EKG Results EKG Interpreted Independently: Yes EKG Findings: EKG shows a sinus rhythm. His QTC is prolonged. There does appear to be ST depressions in V2 through V6. Core Measures - Anticipated LOS I expect patient to be DC'd or transferred within 96 hours.: Yes - Issues Hospital Issues and Management Plan: 76-year-old male diagnosed with Covid 2 weeks ago presents with dyspnea found to have respiratory failure and Covid pneumonia. He will be admitted for Decadron, remdesivir. - DVT/VTE - Prophylaxis VTE/DVT Device ordered at admit?: Yes VTE/DVT Prophylaxis med ordered at admit?: Yes
[2021-06-25] MEDS ORDERED: LACTATED RINGERS 1,000 ML IV SCH (07:00)
--- NOTE | 2021-06-25 07:07 | ADVANCE CARE PLANNING NOTE ---
Advance Care Planning - Planning Encounter Date: 06/25/21 Time: 06:40 Purpose: To discuss goals of care. Parties in Attendance: The patient and myself. Decisional Capacity of the Patient: He has ability to make his own medical decisions. - Diagnosis for Encounter (2) Pneumonia due to COVID-19 virus Summary: He is admitted with acute respiratory failure secondary to COVID-19 pneumonia. He is requiring 4 L of oxygen via nasal cannula. He is not vaccinated against COVID-19. He has not been ill for 2 weeks and the plan is to support him with IV Decadron and remdesivir. - Encounter Subjective/Patient's Story: He lives at home with his , daughter, son-in-law and grandchildren. He is normally independent with his ADLs. Objective/Medical Story: He is admitted with COVID-19 pneumonia after being diagnosed about 2 weeks ago. He is now requiring 4 L of oxygen via nasal cannula to maintain his oxygen saturations. Goals of Care: He has made it quite clear he does not want CPR but is okay with mechanical ventilation as long as it is temporary. He does not want prolonged mechanical ventilation. He is agreeable with Decadron and remdesivir to treat his COVID-19 pneumonia. Plan: We will make him a DNR with intubation as per his wishes. We will look to fill a POLST form today. We will start remdesivir and Decadron and continue supplemental oxygen. Additional Discussion: We discussed the treatment of COVID-19 which includes remdesivir and Decadron. We also discussed that we need to take this on a daily basis as there can be many ups and downs during this illness. Code Status: Do Not Attempt Resuscitation Time spent on advance care plannin
[2021-06-25] MEDS ORDERED: IOPAMIDOL-300 100 ML VIAL ONE (07:34)
[2021-06-25] MEDS ORDERED: IOPAMIDOL-300 100 ML VIAL IVP ONE (08:42)
[2021-06-25] MEDS ORDERED: GABAPENTIN 300 MG CAPSULE PO SCH (09:00)
[2021-06-25] MEDS ORDERED: REMDESIVIR 100MG VIAL 200 MG in SODIUM CHLORIDE 0.9% 250 ML IV ONE (09:00)
[2021-06-25] MEDS: ENOXAPARIN 40 MG/0.4 ML SYRINGE SUBQ SCH (09:04)
[2021-06-25] MEDS: INSULIN ASPART 300 UNIT/3 ML PEN SUBQ SCH ×4 (09:05→20:35)
[2021-06-25] MEDS: SODIUM CHLORIDE FLUSH 0.9% 10 ML SYRINGE IVP SCH ×2 (09:08→17:18)
--- NOTE | 2021-06-25 10:00 | XRAY Report ---
PROCEDURE: Chest 1 View X-Ray INDICATIONS: dyspnea TECHNIQUE: One view of the chest was acquired. COMPARISON: Chest x-ray 10/01/1937 FINDINGS: Surgical changes and devices: None. Lungs and pleura: Patchy appearance of bilateral pulmonary opacities most severe in the left lung. Me diastinum: Mediastinal contours appear normal. Heart size is enlarged. Bones and chest wall: No suspicious bony lesions. Overlying soft tissues appear unremarkable. IMPRESSION: Patchy bilateral pulmonary opacities most suggestive of pneumonia. The above findings are concordant with preliminary report. Reviewed by: Karen Tovar MD on 06/25/2021 9:59 AM [facility] Approved by: Karen Tovar MD on 06/25/2021 9:59 AM [facility] Station ID: [id number]
[2021-06-25] MEDS: NS W/20 MEQ KCL 1,000 ML IV SCH ×2 (10:23→20:23)
--- NOTE | 2021-06-25 10:48 | PHARMACY PROGRESS NOTE ---
- Best Possible Medication History Admit Date and Time: 06/25/21 0424 Processed by: Pharmacy Medication History completed: Yes Patient Interview: Completed Secondary Source(s): Written medication list, Physician records, Pharmacy records (PATIENT ABLE TO CONFIRM HOME MEDICATIONS ), Insurance records As the person ultimately responsible for medication therapy, providers are able to order a medication from an existing home medication list in [facility] via the "Reconcile Routine" prior to Confirmation of that medication by computer support technician. Such practice is discouraged except when the physician, in their clinical judgment, deems that a medical need exists for a medication without regard to previous use.
[2021-06-25 10:54] LABS: ESTIMATED AVERAGE GLUCOSE 143 mg/dL (70-100); HEMOGLOBIN A1c% 6.6 % (4.27-6.07)
--- NOTE | 2021-06-25 11:11 | CT Report ---
PROCEDURE: ANGIO CHEST W/WO INDICATIONS: Covid. Elevated d-dimer. Elevated troponin. Edema. CONTRAST: IV CONTRAST: Isovue 300 ml: 80 PO CONTRAST: *NO PO CONTRAST TECHNIQUE: After the administration of intravenous contrast, 2 mm axial images were acquired from the pulmonary apices to the posterior costophrenic angles during the arterial phase. In addition, 1 mm lung kernel and 5 mm soft tissue kernel reconstructions were performed. 3-dimensional coronal oblique maximum int ensity projection (MIP) reformats, 8 mm axial MIP, and 5 mm coronal and sagittal MPR reformats were t hen performed through the thorax. For radiation dose reduction, the following was used: automated exp osure control, adjustment of mA and/or kV according to patient size. COMPARISON: None. Correlation made to chest x-ray performed same day. FINDINGS: Image quality: Due to extensive respiratory motion, segmental and subsegmental pulmonary arteries are not well seen. Pulmonary arteries: Main pulmonary artery outflow tract and main pulmonary arteries are patent withou t filling defect. Right upper lobe pulmonary artery filling defect cannot be excluded due to motion a rtifact. Proximal lobar pulmonary arteries of the upper lobes are patent. Segmental and more distal p ulmonary arteries are not well assessed. Lungs and pleura: Multifocal, bilateral patchy groundglass opacities are present in all lobes. There are no dense consolidations. There are a few subpleural nodular densities laterally in the right lowe r lobe, likely postinflammatory, one of the largest measuring 1.1 cm., 6/128. Central airway is paten t. The peripheral airways in the lower lobes are mildly narrowed. Mediastinum: Heart size is mildly enlarged, without pericardial effusion. Mild coronary artery calci fication. There are reactive bilateral hilar and mediastinal lymph nodes present. No bulky mediastina l or hilar adenopathy. Thoracic aorta is normal in caliber and enhancement. Esophagus is normal in caliber, without hiatal hernia. Bones and chest wall: No suspicious bony lesions. Ribs and thoracic spine appear intact throughout. Multilevel degenerative disc and endplate changes throughout the spine. No axillary or supraclavicul ar adenopathy. The thyroid gland is unremarkable. Abdomen: Moderate hepatic steatosis. Visualized upper abdominal solid organs appear otherwise normal in the early arterial phase of enhancement. IMPRESSION: 1. Due to extensive respiratory motion, the exam is nondiagnostic for segmental or subsegmental pulmo nary emboli. There are no large central emboli. 2. Multifocal bilateral groundglass opacities consistent with pneumonia. 3. Right lower lobe lung nodules, likely postinflammatory. Follow-up in 6-12 months depending on risk factors is recommended. 4. Mild cardiomegaly and coronary artery disease. Reviewed by: Lorraine Caputo MD on 06/25/2021 11:10 AM [facility] Approved by: Lorraine Caputo MD on 06/25/2021 11:10 AM PST Station ID: [id number]
[2021-06-25] MEDS: carvediloL 12.5 MG TABLET PO SCH ×2 (11:59→20:34)
[2021-06-25 12:18] LABS: CALCIUM 8.5 mg/dL (8.5-10.3); CREATININE 1.3 mg/dL (0.6-1.2); POTASSIUM 2.9 mmol/L (3.5-5.0)
[2021-06-25] MEDS ORDERED: POTASSIUM CHLORIDE 20 MEQ TABLET PO ONE (13:06)
[2021-06-25] MEDS: ACETAMINOPHEN 325 MG TABLET PO PRN (17:34)
[2021-06-25] MEDS: ATORVASTATIN 10 MG TABLET PO SCH (20:34)
[2021-06-25] MEDS: GABAPENTIN 300 MG CAPSULE PO SCH (20:34)
[2021-06-25] MEDS: DOXAZOSIN 1 MG TABLET PO SCH (20:35)
[2021-06-26] MEDS: SODIUM CHLORIDE FLUSH 0.9% 10 ML SYRINGE IVP SCH ×3 (06:29→16:38)
[2021-06-26 07:12] LABS: BASOPHILS % (AUTO) 0.2 %; EOSINOPHILS # (AUTO) 0.1 10^3/uL (0.0-0.7); EOSINOPHILS % (AUTO) 1.1 %; HCT - HEMATOCRIT 34.1 % (42.0-52.0); HGB - HEMOGLOBIN 11.4 g/dL (14.0-18.0); LYMPHOCYTES # (AUTO) 0.7 10^3/uL (1.5-3.5); LYMPHOCYTES % (AUTO) 12.7 %; MEAN CORPUSCULAR HEMOGLOBIN 28.9 pg (27.0-31.0); MEAN CORPUSCULAR HGB CONC 33.4 g/dL (32.0-36.0); MEAN CORPUSCULAR VOLUME 86.5 fL (80.0-94.0); MEAN PLATELET VOLUME 10.6 fL (7.4-11.4); MONOCYTES # (AUTO) 0.4 10^3/uL (0.0-1.0); MONOCYTES % (AUTO) 6.4 %; NEUTROPHILS # (AUTO) 4.3 10^3/uL (1.5-6.6); NEUTROPHILS % (AUTO) 78.3 %; PLT - PLATELET COUNT 259 10^3/uL (130-450); RED BLOOD COUNT 3.94 10^6/uL (4.70-6.10); RED CELL DISTRIBUTION WIDTH 15.2 % (12.0-15.0); WHITE BLOOD COUNT 5.5 x10^3/uL (4.8-10.8)
[2021-06-26 07:28] LABS: CALCIUM 8.4 mg/dL (8.5-10.3); CREATININE 1.1 mg/dL (0.6-1.2); POTASSIUM 3.1 mmol/L (3.5-5.0)
[2021-06-26] MEDS ORDERED: DEXAMETHASONE 10 MG/ML VIAL IVP SCH (09:00)
[2021-06-26] MEDS: INSULIN ASPART 300 UNIT/3 ML PEN SUBQ SCH ×5 (10:49→20:48)
[2021-06-26] MEDS: ENOXAPARIN 40 MG/0.4 ML SYRINGE SUBQ SCH (10:49)
[2021-06-26] MEDS: carvediloL 12.5 MG TABLET PO SCH ×2 (10:53→20:45)
[2021-06-26] MEDS: REMDESIVIR 100MG VIAL 100 MG in SODIUM CHLORIDE 0.9% 100ML 100 ML IV SCH (12:03)
[2021-06-26] MEDS: DEXAMETHASONE 10 MG/ML VIAL IVP SCH (12:03)
[2021-06-26] MEDS: ACETAMINOPHEN 325 MG TABLET PO PRN ×2 (16:36→20:44)
--- NOTE | 2021-06-26 16:49 | PROVIDER PROGRESS NOTE ---
Subjective - Prog Note Date Prog Note Date: 06/26/21 Prog Note Time: 16:47 - Subjective Subjective: He had fever on admission and then defervesced until this morning when he spiked a temp to 38 5 again. He stays on 4 L/min nasal cannula and went up to 5 L. By late this morning he is on CPAP from home and varies between 6 to 8 L to maintain O2 sats at 93% or greater. I asked him if he is feeling better when he raises his right hand and leveled off but waves it back and forth to indicate not so much. He denies chest pain, palpitations. Is exhausted. Able to get up and walk to the bathroom and get back in bed but is completely wiped out by the time he gets there. Lost his IV earlier today and finally got one after 5 or 6 sticks. Eating 75 to 100% of his food. Current Medications - Current Medications Current Medications: Active Medications Acetaminophen (Acetaminophen 325 Mg Tablet) 650 mg PO Q4HR PRN PRN Reason: Pain 1 to 4 Last Admin: 06/26/21 16:36 Dose: 650 mg Documented by: Atorvastatin Calcium (Atorvastatin 10 Mg Tablet) 10 mg PO QPM [facility] Last Admin: 06/25/21 20:34 Dose: 10 mg Documented by: Carvedilol (Carvedilol 12.5 Mg Tablet) 25 mg PO BID [facility] Last Admin: 06/26/21 10:53 Dose: 25 mg Documented by: Dexamethasone (Dexamethasone 10 Mg/Ml Vial) 6 mg IVP DAILY [facility] Stop: 07/04/21 09:01 Last Admin: 06/26/21 12:03 Dose: 6 mg Documented by: Doxazosin Mesylate (Doxazosin 1 Mg Tablet) 2 mg PO QPM [facility] Last Admin: 06/25/21 20:35 Dose: 2 mg Documented by: Enoxaparin Sodium (Enoxaparin 40 Mg/0.4 Ml Syringe) 40 mg SUBQ DAILY [facility] Last Admin: 06/26/21 10:49 Dose: 40 mg Documented by: Gabapentin (Gabapentin 300 Mg Capsule) 600 mg PO QPM [facility] Last Admin: 06/25/21 20:34 Dose: 600 mg Documented by: Remdesivir 100 mg/ Sodium (Chloride) 100 mls @ 200 mls/hr IV DAILY [facility] Stop: 06/29/21 09:29 Last Infusion: 06/26/21 13:00 Dose: Infused Documented by: Insulin Aspart (Insulin Aspart 300 Unit/3 Ml Pen) 2 - 10 unit SUBQ 0800,1200,1700,2100 [facility]; Protocol Last Admin: 06/26/21 16:36 Dose: 7 unit Documented by: Ondansetron HCl (Ondansetron Odt 4 Mg Tablet) 4 mg TL Q6HR PRN PRN Reason: Nausea / Vomiting Ondansetron HCl (Ondansetron 4 Mg/2 Ml Vial) 4 mg IVP Q6HR PRN PRN Reason: Nausea / Vomiting Sodium Chloride (Sodium Chloride Flush 0.9% 10 Ml Syringe) 10 ml IVP PRN PRN PRN Reason: NEEDED PER PROVIDER ORDERS Sodium Chloride (Sodium Chloride Flush 0.9% 10 Ml Syringe) 10 ml IVP 0100,0900,1700 [facility] Last Admin: 06/26/21 16:38 Dose: 10 ml Documented by: Amlodipine Besylate 10 mg PO DAILY 02/07/13 Carvedilol 25 mg PO BID 02/07/13 Simvastatin [Zocor] 20 mg PO QPM 02/07/13 Ubidecarenone [Co Q-10] 100 mg PO DAILY 02/07/13 Gabapentin [Neurontin] 600 mg PO QPM 08/18/20 Telmisartan [Micardis] 80 mg PO DAILY 08/18/20 hydroCHLOROthiazide [Hydrochlorothiazide] 25 mg PO DAILY 08/18/20 Doxazosin Mesylate [Cardura] 2 mg PO DAILY 06/25/21 Insulin Glargine [Lantus Solostar] 120 units SQ QPM 06/25/21 metFORMIN [Glucophage] 1,000 mg PO BID 06/25/21 Objective - Vital Signs/Intake & Output Reviewed Vital Signs: Yes Vital Signs: Vital Signs x48h Temp Pulse Pulse Resp BP Pulse Ox 06/26/21 16:28 37.4 C 68 24 134/64 H 95 06/26/21 11:57 38.3 C H 74 20 135/65 H 93 06/26/21 10:45 92 Intake & Output: Intake & Output 06/23/21 06/24/21 06/25/21 06/26/21 23:59 23:59 23:59 23:59 Intake Total 2561.667 580 Output Total 100 Balance 2561.667 480 - Objective General Appearance: positive: No acute distress (He is laying in bed, comfortable as long as he can stay there. Nursing reports that he had gotten to the bathroom and back 30 minutes ago and it took him a while to recover.), Alert Eyes Bilateral: positive: PERRL, EOMI ENT: positive: No signs of dehydration Neck: positive: No JVD. negative: Stiff neck Respiratory: positive: No respiratory distress, Other (Very quiet lungs, almost no air movement audible by my exam. But there is no tachypnea, increased respiratory effort as he sits and talks to me). negative: Wheezes, Rales, Rhonchi Cardiovascular: positive: Regular rate & rhythm. negative: Gallop/S4, Friction rub Abdomen: positive: Non-tender, No organomegaly, Nml bowel sounds, No distention, Other (Large, obese pannus) Skin: positive: Warm, Dry Extremities: positive: Full ROM, No pedal edema Neurologic/Psychiatric: positive: Oriented x3, CN's nml (2-12), Motor nml - Lab Results Fish Bones: 06/26/21 07:05 06/26/21 07:05 Other Labs: Lab Results x24hrs 06/26/21 06/26/21 Range/Units 07:05 07:05 WBC 5.5 (4.8-10.8) x10^3/uL RBC 3.94 L (4.70-6.10) 10^6/uL Hgb 11.4 L (14.0-18.0) g/dL Hct 34.1 L (42.0-52.0) % MCV 86.5 (80.0-94.0) fL MCH 28.9 (27.0-31.0) pg MCHC 33.4 (32.0-36.0) g/dL RDW 15.2 H (12.0-15.0) % Plt Count 259 (130-450) 10^3/uL MPV 10.6 (7.4-11.4) fL Neut # (Auto) 4.3 (1.5-6.6) 10^3/uL Lymph # (Auto) 0.7 L (1.5-3.5) 10^3/uL [place] # (Auto) 0.4 (0.0-1.0) 10^3/uL Eos # (Auto) 0.1 (0.0-0.7) 10^3/uL Baso # (Auto) 0.0 (0.0-0.1) 10^3/uL Absolute Nucleated RBC 0.00 x10^3/uL Nucleated RBC % 0.0 /100WBC Sodium 138 (135-145) mmol/L Potassium 3.1 L (3.5-5.0) mmol/L Chloride 97 L (101-111) mmol/L Carbon Dioxide 29 (21-32) mmol/L Anion Gap 12.0 (6-13) BUN 39 H (6-20) mg/dL Creatinine 1.1 (0.6-1.2) mg/dL Estimated GFR (MDRD) 65 L (>89) Glucose 150 H (70-100) mg/dL Calcium 8.4 L (8.5-10.3) mg/dL Assessment/Plan - Problem List (1) Acute respiratory failure with hypoxia Impression: This appears to be secondary to COVID-19 pneumonia. He did have +1 pitting edema in the lower extremities and will need to evaluate for CHF as well. But since he has been here, he tells me he is elvating his legs and edema resolved. BNP is 138. Minimally elevated.We will continue him on Decadron 6 mg IV daily: Day 08/26. He borderline for requiring remdesivir since usual treament is <7days and symptomatic. On remdesivir Day2. D-dimer was 492.5. As such CT pulmonary angiogram was done and there is no pulmonary emboli. However a right upper lobe pulmonary artery filling defect could not be excluded due to motion artifact. The rest of his arteries were not well assessed as well in the segmental and distal pulmonary artery regions.He is on prophylactic Lovenox, not therapeutic. Considering the D-dimer was elevated but only mildly so, I will change Lovenox to 0.5 mg/kg twice daily. Continue to support with oxygen. He is ok for intubation not CPR. (2) Pneumonia due to COVID-19 virus Conclusion/Plan: This appears to be the cause of his respiratory failure. He was diagnosed only 2 weeks ago with COVID-19 and he is not vaccinated. I am hopeful given it has been 2 weeks since he was diagnosed that he will improve over the next few days. We will start him on Decadron and remdesivir. Continue contact precautions. He had multifocal, bilateral patchy groundglass opacities present in all lobes. No consolidation. (3) Elevated troponin Conclusion/Plan: His troponin is elevated at 40.1 and his EKG does suggest ST depressions in V2 through V6. Fortunately, he has no chest pain. It was suspected this is likely demand ischemia related to his respiratory failure. Troponin was 40.1. Then was 42.8. We will check a third set. (4) Insulin dependent diabetes mellitus Conclusion/Plan: His blood glucose is currently controlled in the 140s which is somewhat surprising given he has not taken his insulin for over a week. Although he has not had much oral intake, I would expect his blood glucose to be elevated. He is on 120 units of Lantus twice daily. He was placed on a sliding scale and we have been monitoring his blood glucose closely especially since he is on Decadron. Pharmacy did verify his usage and he is on 120 units of Lantus. Plus Glucophage. While here glucose was 144, 182, 191, 185, and 170 yesterday. Today he has been 144, 184, 207. He has received 19 units of NovoLog between 5:00 PM on the and 4:30 PM tonight. Plan: Add 3 units of fixed nutritional insulin to the sliding scale (5) Hypokalemia Conclusion/Plan: His potassium is decreased at 2.7. He was supplemented and potassium was 3.1 this morning. He was supplemented again. Magnesium has been normal at 2 and 2.1. (6) Hypertension Conclusion/Plan: He is currently normotensive. We will hold his home antihypertensives for the time being. (7) CKD (chronic kidney disease) Conclusion/Plan: His BUN and creatinine are elevated slightly although it is not clear if this is acute kidney injury or CKD. He has no previous creatinines in our system. On admission he was 1.3. Today he is 1.1. Qualifiers: Chronic kidney disease stage: stage 2 (mild) Qualified Code(s): N18.2 - Chronic kidney disease, stage 2 (mild) (8) KATERINA on CPAP Conclusion/Plan: Continue home CPAP.
[2021-06-26] MEDS: ENOXAPARIN 80 MG/0.8 ML SYRINGE SUBQ SCH (20:43)
[2021-06-26] MEDS: DOXAZOSIN 1 MG TABLET PO SCH (20:44)
[2021-06-26] MEDS: GABAPENTIN 300 MG CAPSULE PO SCH (20:44)
[2021-06-26] MEDS: traZODone 50 MG TABLET PO SCH (20:44)
[2021-06-26] MEDS: ATORVASTATIN 10 MG TABLET PO SCH (20:44)
[2021-06-27] MEDS: SODIUM CHLORIDE FLUSH 0.9% 10 ML SYRINGE IVP SCH ×3 (01:12→17:03)
[2021-06-27 05:53] LABS: BASOPHILS % (AUTO) 0.2 %; EOSINOPHILS % (AUTO) 0.4 %; HCT - HEMATOCRIT 33.1 % (42.0-52.0); LYMPHOCYTES % (AUTO) 21.7 %; MEAN CORPUSCULAR HEMOGLOBIN 29.3 pg (27.0-31.0); MEAN CORPUSCULAR HGB CONC 33.2 g/dL (32.0-36.0); MEAN CORPUSCULAR VOLUME 88.3 fL (80.0-94.0); MEAN PLATELET VOLUME 10.9 fL (7.4-11.4); MONOCYTES % (AUTO) 8.2 %; NEUTROPHILS % (AUTO) 66.9 %; PLT - PLATELET COUNT 270 10^3/uL (130-450); RED BLOOD COUNT 3.75 10^6/uL (4.70-6.10); RED CELL DISTRIBUTION WIDTH 14.9 % (12.0-15.0); WHITE BLOOD COUNT 4.6 x10^3/uL (4.8-10.8)
[2021-06-27 05:57] LABS: ABNORMAL LYMPHS % (MANUAL) 0 %; BAND NEUTROPHILS % (MANUAL) 0 %
[2021-06-27 05:58] LABS: CALCIUM 8.4 mg/dL (8.5-10.3); CREATININE 0.9 mg/dL (0.6-1.2); POTASSIUM 3.4 mmol/L (3.5-5.0)
[2021-06-27 06:31] LABS: DIFFERENTIAL COMMENT MANUAL DIFFERENTIAL; LYMPHOCYTES # (MANUAL) 1.1 10^3/uL (1.5-3.5); LYMPHOCYTES % (MANUAL) 24 %; MONOCYTES # (MANUAL) 0.4 10^3/uL (0.0-1.0); PLATELET ESTIMATE, MANUAL NORMAL (130-450,000) (NORMAL); PLATELET MORPHOLOGY NORMAL APPEARANCE (NORMAL); RBC MORPHOLOGY (MULTIPLE) NORMAL APPEARANCE (NORMAL); WBC MORPHOLOGY (MULTIPLE) NORMAL APPEARANCE (NORMAL)
--- NOTE | 2021-06-27 07:55 | PROVIDER PROGRESS NOTE ---
Subjective - Prog Note Date Prog Note Date: 06/27/21 Prog Note Time: 07:54 - Subjective Subjective: On June 25 he was down to 4 L nasal cannula, then started going back up again to 5 L. Yesterday morning was up to 8 L and then back down to 6 L between yesterday morning and this morning. CPAP will go on when he is asleep. O2 sats are being maintained at 95%. His last temperature spike was at noon yesterday and he has not had any further fever. Feels like he is getting better. Still hard for him to get up and mobilize because he gets so short of breath when he is so fatigued. As he gets older, he realizes this is harder for him and his daughter. He will be planning for assisted living facility down the road. Just not right now. Daughter is asking for paid leave form to be filled out for her. I did fill it out and left it on the desk for social work to corn picker. Current Medications - Current Medications Current Medications: Active Medications Acetaminophen (Acetaminophen 325 Mg Tablet) 650 mg PO Q4HR PRN PRN Reason: Pain 1 to 4 Last Admin: 06/26/21 20:44 Dose: 650 mg Documented by: Atorvastatin Calcium (Atorvastatin 10 Mg Tablet) 10 mg PO QPM [facility] BY [facility] Last Admin: 06/26/21 20:44 Dose: 10 mg Documented by: Carvedilol (Carvedilol 12.5 Mg Tablet) 25 mg PO BID [facility]PLACED BY [facility] Last Admin: 06/26/21 20:45 Dose: 25 mg Documented by: Dexamethasone (Dexamethasone 10 Mg/Ml Vial) 6 mg IVP DAILY [facility] BY [facility] Stop: 07/04/21 09:01 Last Admin: 06/26/21 12:03 Dose: 6 mg Documented by: Doxazosin Mesylate (Doxazosin 1 Mg Tablet) 2 mg PO QPM [facility] BY [facility] Last Admin: 06/26/21 20:44 Dose: 2 mg Documented by: Enoxaparin Sodium (Enoxaparin 80 Mg/0.8 Ml Syringe) 80 mg SUBQ BID [facility]ED BY [facility] Last Admin: 06/26/21 20:43 Dose: 80 mg Documented by: Gabapentin (Gabapentin 300 Mg Capsule) 600 mg PO QPM [facility]PLACED BY [facility] Last Admin: 06/26/21 20:44 Dose: 600 mg Documented by: Remdesivir 100 mg/ Sodium (Chloride) 100 mls @ 200 mls/hr IV DAILY [facility] BY [facility] Stop: 06/29/21 09:29 Last Infusion: 06/26/21 13:00 Dose: Infused Documented by: Insulin Aspart (Insulin Aspart 300 Unit/3 Ml Pen) 3 unit SUBQ TIDWM REPL[facility]ED BY [facility]; Protocol Last Admin: 06/26/21 17:04 Dose: Not Given Documented by: Insulin Aspart (Insulin Aspart 300 Unit/3 Ml Pen) 3 - 11 unit SUBQ 0800,1200,1700,2100 [facility]; Protocol Last Admin: 06/26/21 20:48 Dose: 7 unit Documented by: Ondansetron HCl (Ondansetron Odt 4 Mg Tablet) 4 mg TL Q6HR PRN PRN Reason: Nausea / Vomiting Ondansetron HCl (Ondansetron 4 Mg/2 Ml Vial) 4 mg IVP Q6HR PRN PRN Reason: Nausea / Vomiting Sodium Chloride (Sodium Chloride Flush 0.9% 10 Ml Syringe) 10 ml IVP PRN PRN PRN Reason: NEEDED PER PROVIDER ORDERS Sodium Chloride (Sodium Chloride Flush 0.9% 10 Ml Syringe) 10 ml IVP 0100,0900,1700 REPLACED BY [facility] Last Admin: 06/27/21 01:12 Dose: 10 ml Documented by: Trazodone HCl (Trazodone 50 Mg Tablet) 50 mg PO QPM REPLACED BY [facility] Last Admin: 06/26/21 20:44 Dose: 50 mg Documented by: Amlodipine Besylate 10 mg PO DAILY 02/07/13 Carvedilol 25 mg PO BID 02/07/13 Simvastatin [Zocor] 20 mg PO QPM 02/07/13 Ubidecarenone [Co Q-10] 100 mg PO DAILY 02/07/13 Gabapentin [Neurontin] 600 mg PO QPM 08/18/20 Telmisartan [Micardis] 80 mg PO DAILY 08/18/20 hydroCHLOROthiazide [Hydrochlorothiazide] 25 mg PO DAILY 08/18/20 Doxazosin Mesylate [Cardura] 2 mg PO DAILY 06/25/21 Insulin Glargine [Lantus Solostar] 120 units SQ QPM 06/25/21 metFORMIN [Glucophage] 1,000 mg PO BID 06/25/21 Objective - Vital Signs/Intake & Output Reviewed Vital Signs: Yes Vital Signs: Vital Signs x48h Temp Pulse Resp BP Pulse Ox 06/27/21 03:08 36.5 C 60 20 145/72 H 95 Intake & Output: Intake & Output 06/24/21 06/25/21 06/26/21 06/27/21 23:59 23:59 23:59 23:59 Intake Total 2561.667 880 100 Output Total 100 Balance 2561.667 780 100 - Objective General Appearance: positive: No acute distress, Alert, Other (Obese, short statured elderly male who is sitting up in a chair. Nasal tone to voice, a little tachypneic with moving around and speaking to me. But no use of accessory muscles and comfortable) Eyes Bilateral: positive: PERRL, EOMI ENT: positive: No signs of dehydration Neck: positive: No JVD. negative: Stiff neck Respiratory: positive: No respiratory distress, Rhonchi (Faint in the mid lungs but clear with a deep cough). negative: Wheezes, Rales Cardiovascular: positive: Regular rate & rhythm, No murmur, No gallop Abdomen: positive: Non-tender, Nml bowel sounds, No distention, Other (Large, obese abdominal pannus with ventral hernias) Skin: positive: Warm, Dry Extremities: positive: Full ROM, Pedal edema (tRACE. Right ankle little bit more swollen than left but overall improved) Neurologic/Psychiatric: positive: Oriented x3, CN's nml (2-12). negative: Motor nml (no focal deficits but needs assist due to fatigue, obesity, deconditioning and pereira) - Lab Results Fish Bones: 06/27/21 05:00 06/27/21 05:00 Other Labs: Lab Results x24hrs 06/27/21 06/27/21 06/26/21 Range/Units 05:00 05:00 17:15 WBC 4.6 L (4.8-10.8) x10^3/uL RBC 3.75 L (4.70-6.10) 10^6/uL Hgb 11.0 L (14.0-18.0) g/dL Hct 33.1 L (42.0-52.0) % MCV 88.3 (80.0-94.0) fL MCH 29.3 (27.0-31.0) pg MCHC 33.2 (32.0-36.0) g/dL RDW 14.9 (12.0-15.0) % Plt Count 270 (130-450) 10^3/uL MPV 10.9 (7.4-11.4) fL Neut # (Auto) Not Reportable Lymph # (Auto) Not Reportable [place] # (Auto) Not Reportable Eos # (Auto) Not Reportable Baso # (Auto) Not Reportable Absolute Nucleated RBC Not Reportable Total Counted 100 Band Neuts % (Manual) 0 (0 - 10) % Abnorm Lymph % (Manual) 0 % Nucleated RBC % Not Reportable Neutrophils # (Manual) 3.0 (1.5-6.6) 10^3/uL Lymphocytes # (Manual) 1.1 L (1.5-3.5) 10^3/uL Monocytes # (Manual) 0.4 (0.0-1.0) 10^3/uL Eosinophils # (Manual) 0.0 (0-0.7) 10^3/uL Basophils # (Manual) 0.0 (0-0.1) 10^3/uL Differential Comment MANUAL DIFFERENTIAL WBC Morphology NORMAL APPEARANCE (NORMAL) Platelet Estimate NORMAL (130-450,000) (NORMAL) Platelet Morphology NORMAL APPEARANCE (NORMAL) RBC Morph Micro Appear NORMAL APPEARANCE (NORMAL) Sodium 138 (135-145) mmol/L Potassium 3.4 L (3.5-5.0) mmol/L Chloride 98 L (101-111) mmol/L Carbon Dioxide 28 (21-32) mmol/L Anion Gap 12.0 (6-13) BUN 34 H (6-20) mg/dL Creatinine 0.9 (0.6-1.2) mg/dL Estimated GFR (MDRD) 82 L (>89) Glucose 173 H (70-100) mg/dL Calcium 8.4 L (8.5-10.3) mg/dL Troponin I High Sens 18.9 (2.3-19.7) ng/L ABX Reporting Has patient been on IV antibiotics over the past 48 hours?: No Assessment/Plan - Problem List (1) Acute respiratory failure with hypoxia Impression: This appears to be secondary to COVID-19 pneumonia. He did have +1 pitting edema in the lower extremities that has improved today and will need to evaluate for CHF as well. But since he has been here, he tells me he is elvating his legs and that has helped edema as well. BNP is 138. Minimally elevated.We will continue him on Decadron 6 mg IV daily: Day 09/23. He borderline for requiring remdesivir since usual treament is <7days and symptomatic. On remdesivir Day3/5. D-dimer was 492.5. As such CT pulmonary angiogram was done and there is no pulmonary emboli. However a right upper lobe pulmonary artery filling de fect could not be excluded due to motion artifact. The rest of his arteries were not well assessed as well in the segmental and distal pulmonary artery regions. He is on prophylactic Lovenox, not therapeutic. Considering the D-dimer was elevated but only mildly so, I changed Lovenox to 0.5 mg/kg twice daily. Continue to support with oxygen. He is ok for intubation not CPR. (2) Pneumonia due to COVID-19 virus Conclusion/Plan: This appears to be the cause of his respiratory failure. He was diagnosed only 2 weeks ago with COVID-19 and he is not vaccinated. I am hopeful given it has been 2 weeks since he was diagnosed that he will improve over the next few days. We will start him on Decadron and remdesivir. The remdesivir is not completely indicated this far out. Started in ER and continued on floor. Continue contact precautions. He had multifocal, bilateral patchy groundglass opacities present in all lobes. No consolidation. (3) Elevated troponin Conclusion/Plan: His troponin is elevated at 40.1 and his EKG does suggest ST depressions in V2 through V6. Fortunately, he has no chest pain. It was suspected this is likely demand ischemia related to his respiratory failure. Troponin was 40.1. Then was 42.8. A third was 18.9 (4) Insulin dependent diabetes mellitus Conclusion/Plan: His blood glucose is currently controlled in the 140s which is somewhat surpri sing given he has not taken his insulin for over a week. Although he has not had much oral intake, I would expect his blood glucose to be elevated. He is on 120 units of Lantus twice daily. He was placed on a sliding scale and we have been monitoring his blood glucose closely especially since he is on Decadron. Pharmacy did verify his usage and he is on 120 units of Lantus. Plus Glucophage. Today glucose has been 167, 228, 241. This is on NovoLog 3 units with meals. Sliding scale with meals. Plan: Add 10 units of Lantus in the morning. (5) Hypokalemia Conclusion/Plan: His potassium is decreased at 2.7. He has been low both days of admission and I will supplement again this morning. (6) Hypertension Conclusion/Plan: He is currently normotensive. We will hold his home antihypertensives for the time being. (7) TOÑO Conclusion/Plan: His BUN and creatinine are elevated slightly and labs show resolution of high creat with fluids so suspect TOÑO. He has no previous creatinines in our system. On admission he was 1.3. Today he is 0.9. Qualifiers: Chronic kidney disease stage: stage 2 (mild) Qualified Code(s): N18.2 - Chronic kidney disease, stage 2 (mild) (8) KATERINA on CPAP Conclusion/Plan: Continue home CPAP.
[2021-06-27] MEDS: INSULIN ASPART 300 UNIT/3 ML PEN SUBQ SCH ×7 (10:16→20:04)
[2021-06-27] MEDS: carvediloL 12.5 MG TABLET PO SCH ×2 (10:17→19:57)
[2021-06-27] MEDS: DEXAMETHASONE 10 MG/ML VIAL IVP SCH (10:19)
[2021-06-27] MEDS: ENOXAPARIN 80 MG/0.8 ML SYRINGE SUBQ SCH ×2 (10:22→20:04)
[2021-06-27] MEDS: REMDESIVIR 100MG VIAL 100 MG in SODIUM CHLORIDE 0.9% 100ML 100 ML IV SCH (10:23)
[2021-06-27] MEDS: ACETAMINOPHEN 325 MG TABLET PO PRN (17:03)
[2021-06-27] MEDS: DOXAZOSIN 1 MG TABLET PO SCH (19:57)
[2021-06-27] MEDS: ATORVASTATIN 10 MG TABLET PO SCH (19:57)
[2021-06-27] MEDS: traZODone 50 MG TABLET PO SCH (19:58)
[2021-06-27] MEDS: GABAPENTIN 300 MG CAPSULE PO SCH (19:58)
[2021-06-28] MEDS: SODIUM CHLORIDE FLUSH 0.9% 10 ML SYRINGE IVP SCH ×4 (02:30→22:56)
[2021-06-28 05:55] LABS: BASOPHILS % (AUTO) 0.3 %; EOSINOPHILS % (AUTO) 0.6 %; HCT - HEMATOCRIT 34.6 % (42.0-52.0); HGB - HEMOGLOBIN 11.3 g/dL (14.0-18.0); LYMPHOCYTES % (AUTO) 22.2 %; MEAN CORPUSCULAR HEMOGLOBIN 28.5 pg (27.0-31.0); MEAN CORPUSCULAR HGB CONC 32.7 g/dL (32.0-36.0); MEAN CORPUSCULAR VOLUME 87.4 fL (80.0-94.0); MEAN PLATELET VOLUME 10.8 fL (7.4-11.4); MONOCYTES % (AUTO) 5.3 %; PLT - PLATELET COUNT 298 10^3/uL (130-450); RED BLOOD COUNT 3.96 10^6/uL (4.70-6.10); RED CELL DISTRIBUTION WIDTH 14.8 % (12.0-15.0); WHITE BLOOD COUNT 6.8 x10^3/uL (4.8-10.8)
[2021-06-28 06:02] LABS: ABNORMAL LYMPHS % (MANUAL) 0 %
[2021-06-28 06:07] LABS: CALCIUM 8.8 mg/dL (8.5-10.3); CREATININE 0.9 mg/dL (0.6-1.2); POTASSIUM 3.5 mmol/L (3.5-5.0)
[2021-06-28 06:32] LABS: BAND NEUTROPHILS % (MANUAL) 1 %; LYMPHOCYTES # (MANUAL) 1.4 10^3/uL (1.5-3.5); LYMPHOCYTES % (MANUAL) 21 %; MONOCYTES # (MANUAL) 0.3 10^3/uL (0.0-1.0); NEUTROPHILS # (MANUAL) 5.1 10^3/uL (1.5-6.6); PLATELET ESTIMATE, MANUAL NORMAL (130-450,000) (NORMAL); PLATELET MORPHOLOGY NORMAL APPEARANCE (NORMAL); RBC MORPHOLOGY (MULTIPLE) NORMAL APPEARANCE (NORMAL); WBC MORPHOLOGY (MULTIPLE) NORMAL APPEARANCE (NORMAL)
[2021-06-28 06:33] LABS: DIFFERENTIAL COMMENT MANUAL DIFFERENTIAL
--- NOTE | 2021-06-28 07:50 | PROVIDER PROGRESS NOTE ---
Assessment/Plan - Problem List (1) Acute respiratory failure with hypoxia Assessment/Plan: Secondary to COVID-19 pneumonia. On 4 L of oxygen via nasal cannula with oxygen saturation at 95%. On dexamethasone 3/9. Remdesivir 4/5. Lovenox 80 mg subcu twice daily. (2) Pneumonia due to COVID-19 virus Assessment/Plan: On 4 L of oxygen via nasal cannula with oxygen saturation at 95%. On dexamethasone 3/9. Remdesivir 4/5. Lovenox 80 mg subcu twice daily. (3) KATERINA on CPAP Assessment/Plan: Patient uses CPAP at night. (4) TOÑO (acute kidney injury) Assessment/Plan: Resolved. Creatinine 0.9 with estimated GFR of 82. We will continue to monitor. (5) Elevated troponin Assessment/Plan: Troponin trend was 40.1, then 42.8 and 18.9. This was suspected to be due to demand ischemia related to his respiratory failure. (6) Hypertension Assessment/Plan: Coreg 25 mg p.o. twice daily (7) Hypokalemia Assessment/Plan: Resolved Potassium is 3.5. (8) Insulin dependent diabetes mellitus Assessment/Plan: Hemoglobin A1c was 6.6. On Lantus 10 units subcu daily. Sliding scale insulin. Accu-Cheks before every meal at bedtime. - Current Meds Current Meds: Current Medications Generic Name Dose Route Start Last Admin Trade Name Freq PRN Reason Stop Dose Admin Acetaminophen 650 mg 06/25/21 04:24 06/27/21 17:03 Acetaminophen 325 Mg Tablet PO 650 mg Q4HR PRN Administration Pain 1 to 4 Atorvastatin Calcium 10 mg 06/25/21 21:00 06/27/21 19:57 Atorvastatin 10 Mg Tablet PO 10 mg QPM EDIE Administration Carvedilol 25 mg 06/25/21 12:00 06/27/21 19:57 Carvedilol 12.5 Mg Tablet PO 25 mg BID EDIE Administration Dexamethasone 6 mg 06/26/21 09:00 06/27/21 10:19 Dexamethasone 10 Mg/Ml Vial IVP 07/04/21 09:01 6 mg DAILY EDIE Administration Doxazosin Mesylate 2 mg 06/25/21 21:00 06/27/21 19:57 Doxazosin 1 Mg Tablet PO 2 mg QPM EDIE Administration Enoxaparin Sodium 80 mg 06/26/21 21:00 06/27/21 20:04 Enoxaparin 80 Mg/0.8 Ml Syringe SUBQ 80 mg BID EDIE Administration Gabapentin 600 mg 06/25/21 21:00 06/27/21 19:58 Gabapentin 300 Mg Capsule PO 600 mg QPM EDIE Administration Remdesivir 100 mg/ Sodium 100 mls @ 200 mls/hr 06/26/21 09:00 06/27/21 11:04 Chloride IV 06/29/21 09:29 Infused DAILY EDIE Infusion Insulin Aspart 3 unit 06/26/21 18:00 06/27/21 17:04 Insulin Aspart 300 Unit/3 Ml Pen SUBQ 3 unit TIDWM EDIE Administration Protocol Insulin Aspart 3 - 11 unit 06/26/21 21:00 06/27/21 20:04 Insulin Aspart 300 Unit/3 Ml Pen SUBQ 9 unit 0800,1200,1700,2100 EDIE Administration Protocol Sodium Chloride 10 ml 06/25/21 09:00 06/28/21 02:30 Sodium Chloride Flush 0.9% 10 Ml Syringe IVP 10 ml 0100,0900,1700 EDIE Administration Trazodone HCl 50 mg 06/26/21 21:00 06/27/21 19:58 Trazodone 50 Mg Tablet PO 50 mg QPM EDIE Administration - Lab Result Fish Bone Diagrams: 06/28/21 05:30 06/28/21 05:30 Subjective - Subjective Patient Reports: Other (Resting comfortably in bedside chair at time of exam. He reports breathing better today than the previous day. He had just ambulated to the bathroom and back with no significant difficulties. On 4 L oxygen with oxygen saturation 94%) Objective Vital Signs: Vital Signs - 24 hr 06/27/21 06/27/21 06/27/21 07:54 11:45 15:55 Temperature 36.6 C 36.9 C 36.5 C Heart Rate [ 66 66 Brachial] Respiratory 20 20 20 Rate Blood Pressure 142/67 H 133/86 H 136/72 H [Right Brachial artery] Blood Pressure [Right Radial artery] O2 Saturation 94 95 06/27/21 06/28/21 06/28/21 19:27 00:00 04:48 Temperature 36.3 C L 36.4 C L 36.5 C Heart Rate [ 63 65 59 L Brachial] Respiratory 22 26 H 26 H Rate Blood Pressure 151/80 H 140/74 H [Right Brachial artery] Blood Pressure 149/79 H [Right Radial artery] O2 Saturation 96 93 90 L Oxygen O2 Source CPAP Oxygen Flow Rate 6 I&O (Last 24 Hrs): Intake and Output Totals x24h 06/26/21 06/27/21 06/28/21 23:59 23:59 23:59 Intake Total 880 1400 Output Total 100 Balance 780 1400 General: Alert, Oriented x3, No acute distress, Mild distress HEENT: PERRLA, EOMI Neck: Supple, No JVD Neuro: Alert, Non Focal, Oriented Times 3 Cardiovascular: Regular rate Respiratory: Chest non-tender, No respiratory distress, Other (Diminished breath sounds) Abdomen: Normal bowel sounds, Soft, No tenderness, No masses Extremities: No clubbing, No cyanosis, No edema, No tenderness/swelling Skin: No rashes, No breakdown, No significant lesion - Results Results: Laboratory Results WBC 6.8 x10^3/uL (4.8-10.8) 06/28/21 05:30 RBC 3.96 10^6/uL (4.70-6.10) L 06/28/21 05:30 Hgb 11.3 g/dL (14.0-18.0) L 06/28/21 05:30 Hct 34.6 % (42.0-52.0) L 06/28/21 05:30 MCV 87.4 fL (80.0-94.0) 06/28/21 05:30 MCH 28.5 pg (27.0-31.0) 06/28/21 05:30 MCHC 32.7 g/dL (32.0-36.0) 06/28/21 05:30 RDW 14.8 % (12.0-15.0) 06/28/21 05:30 Plt Count 298 10^3/uL (130-450) 06/28/21 05:30 MPV 10.8 fL (7.4-11.4) 06/28/21 05:30 Neut # (Auto) Not Reportable 06/28/21 05:30 Lymph # (Auto) Not Reportable 06/28/21 05:30 [place] # (Auto) Not Reportable 06/28/21 05:30 Eos # (Auto) Not Reportable 06/28/21 05:30 Baso # (Auto) Not Reportable 06/28/21 05:30 Absolute Nucleated RBC Not Reportable 06/28/21 05:30 Total Counted 100 06/28/21 05:30 Band Neuts % (Manual) 1 % (0-10) 06/28/21 05:30 Abnorm Lymph % (Manual) 0 % 06/28/21 05:30 Nucleated RBC % Not Reportable 06/28/21 05:30 Neutrophils # (Manual) 5.1 10^3/uL (1.5-6.6) 06/28/21 05:30 Lymphocytes # (Manual) 1.4 10^3/uL (1.5-3.5) L 06/28/21 05:30 Monocytes # (Manual) 0.3 10^3/uL (0.0-1.0) 06/28/21 05:30 Eosinophils # (Manual) 0.0 10^3/uL (0-0.7) 06/28/21 05:30 Basophils # (Manual) 0.0 10^3/uL (0-0.1) 06/28/21 05:30 Differential Comment MANUAL DIFFERENTIAL 06/28/21 05:30 WBC Morphology NORMAL APPEARANCE (NORMAL) 06/28/21 05:30 Platelet Estimate NORMAL (130-450,000) (NORMAL) 06/28/21 05:30 Platelet Morphology NORMAL APPEARANCE (NORMAL) 06/28/21 05:30 RBC Morph Micro Appear NORMAL APPEARANCE (NORMAL) 06/28/21 05:30 D-Dimer 492.5 ng/mL (200.0-255.0) H 06/25/21 05:23 Sodium 141 mmol/L (135-145) 06/28/21 05:30 Potassium 3.5 mmol/L (3.5-5.0) 06/28/21 05:30 Chloride 100 mmol/L (101-111) L 06/28/21 05:30 Carbon Dioxide 30 mmol/L (21-32) 06/28/21 05:30 Anion Gap 11.0 (6-13) 06/28/21 05:30 BUN 29 mg/dL (6-20) H 06/28/21 05:30 Creatinine 0.9 mg/dL (0.6-1.2) 06/28/21 05:30 Estimated GFR (MDRD) 82 (>89) L 06/28/21 05:30 Glucose 189 mg/dL (70-100) H 06/28/21 05:30 POC Whole Bld Glucose 282 mg/dL (70 - 100) H 06/27/21 20:02 Estimat Average Glucose 143 mg/dL (70-100) H 06/25/21 04:03 Hemoglobin A1c % 6.6 % (4.27-6.07) H 06/25/21 04:03 Calcium 8.8 mg/dL (8.5-10.3) 06/28/21 05:30 Magnesium 2.1 mg/dL (1.7-2.8) 06/25/21 10:00 Total Bilirubin 1.1 mg/dL (0.2-1.0) H 06/25/21 04:03 AST 57 IU/L (10-42) H 06/25/21 04:03 ALT 32 IU/L (10-60) 06/25/21 04:03 Alkaline Phosphatase 70 IU/L (42-121) 06/25/21 04:03 Troponin I High Sens 18.9 ng/L (2.3-19.7) 06/26/21 17:15 C-Reactive Protein 4.5 mg/dL (0-1.0) H 06/25/21 05:23 B-Natriuretic Peptide 138 pg/mL (5-100) H 06/25/21 05:23 Total Protein 6.9 g/dL (6.7-8.2) 06/25/21 04:03 Albumin 3.7 g/dL (3.2-5.5) 06/25/21 04:03 Globulin 3.2 g/dL (2.1-4.2) 06/25/21 04:03 Albumin/Globulin Ratio 1.2 (1.0-2.2) 06/25/21 04:03 Lipase 41 U/L (22-51) 06/25/21 04:03 Nasal Adenovirus (PCR) NOT DETECTED 06/25/21 04:05 Nasal B. parapertussis DNA (PCR) NOT DETECTED 06/25/21 04:05 Nasal Coronavir 229E PCR NOT DETECTED 06/25/21 04:05 Nasal Coronavir HKU1 PCR NOT DETECTED 06/25/21 04:05 Nasal Coronavir NL63 PCR NOT DETECTED 06/25/21 04:05 Nasal Coronavir OC43 PCR NOT DETECTED 06/25/21 04:05 Nasal Enterovir/Rhinovir PCR NOT DETECTED 06/25/21 04:05 Nasal Influenza B PCR NOT DETECTED 06/25/21 04:05 Nasal Influenza A PCR NOT DETECTED 06/25/21 04:05 Nasal Parainfluen 1 PCR NOT DETECTED 06/25/21 04:05 Nasal Parainfluen 2 PCR NOT DETECTED 06/25/21 04:05 Nasal Parainfluen 3 PCR NOT DETECTED 06/25/21 04:05 Nasal Parainfluen 4 PCR NOT DETECTED 06/25/21 04:05 Nasal RSV (PCR) NOT DETECTED 06/25/21 04:05 Nasal B.pertussis DNA PCR NOT DETECTED 06/25/21 04:05 Nasal C.pneumoniae (PCR) NOT DETECTED 06/25/21 04:05 [place] Human Metapneumo PCR NOT DETECTED 06/25/21 04:05 Nasal M.pneumoniae (PCR) NOT DETECTED 06/25/21 04:05 Nasal SARS-CoV-2 (PCR) DETECTED A 06/25/21 04:05 - Procedures Procedures: Procedures CATARAC PHACOEMULS/ASPIR (07/25/13) INSERT LENS AT CATAR EXT (07/25/13) ABX Reporting Has patient been on IV antibiotics over the past 48 hours?: No
[2021-06-28] MEDS ORDERED: INSULIN GLARGINE 300 UNIT/3 ML PEN SUBQ SCH (08:00)
[2021-06-28] MEDS: INSULIN ASPART 300 UNIT/3 ML PEN SUBQ SCH ×7 (08:27→22:46)
[2021-06-28] MEDS: carvediloL 12.5 MG TABLET PO SCH ×2 (08:29→22:43)
[2021-06-28] MEDS: ENOXAPARIN 80 MG/0.8 ML SYRINGE SUBQ SCH ×2 (08:30→22:42)
[2021-06-28] MEDS: REMDESIVIR 100MG VIAL 100 MG in SODIUM CHLORIDE 0.9% 100ML 100 ML IV SCH (08:57)
[2021-06-28] MEDS: DEXAMETHASONE 10 MG/ML VIAL IVP SCH (09:00)
[2021-06-28] MEDS: ACETAMINOPHEN 325 MG TABLET PO PRN ×2 (17:34→22:43)
[2021-06-28] MEDS: DOXAZOSIN 1 MG TABLET PO SCH (22:43)
[2021-06-28] MEDS: traZODone 50 MG TABLET PO SCH (22:44)
[2021-06-28] MEDS: ATORVASTATIN 10 MG TABLET PO SCH (22:44)
[2021-06-28] MEDS: GABAPENTIN 300 MG CAPSULE PO SCH (22:44)
[2021-06-29 06:44] LABS: BASOPHILS % (AUTO) 0.1 %; EOSINOPHILS # (AUTO) 0.1 10^3/uL (0.0-0.7); EOSINOPHILS % (AUTO) 0.9 %; HCT - HEMATOCRIT 33.9 % (42.0-52.0); HGB - HEMOGLOBIN 11.2 g/dL (14.0-18.0); LYMPHOCYTES # (AUTO) 1.8 10^3/uL (1.5-3.5); LYMPHOCYTES % (AUTO) 20.4 %; MEAN CORPUSCULAR HEMOGLOBIN 29.3 pg (27.0-31.0); MEAN CORPUSCULAR VOLUME 88.7 fL (80.0-94.0); MEAN PLATELET VOLUME 10.9 fL (7.4-11.4); MONOCYTES # (AUTO) 0.5 10^3/uL (0.0-1.0); MONOCYTES % (AUTO) 5.4 %; NEUTROPHILS # (AUTO) 5.8 10^3/uL (1.5-6.6); NEUTROPHILS % (AUTO) 65.5 %; NRBC ABSOLUTE COUNT (AUTO) 0.03 x10^3/uL; NUCLEATED RED BLOOD CELLS AUTO 0.3 /100WBC; PLT - PLATELET COUNT 320 10^3/uL (130-450); RED BLOOD COUNT 3.82 10^6/uL (4.70-6.10); RED CELL DISTRIBUTION WIDTH 14.8 % (12.0-15.0); WHITE BLOOD COUNT 8.9 x10^3/uL (4.8-10.8)
[2021-06-29 06:50] LABS: CALCIUM 8.8 mg/dL (8.5-10.3); CREATININE 0.8 mg/dL (0.6-1.2); POTASSIUM 3.3 mmol/L (3.5-5.0)
[2021-06-29] MEDS ORDERED: POTASSIUM CHLORIDE 20 MEQ TABLET PO ONE (07:40)
[2021-06-29] MEDS: hydroCHLOROthiazide 25 MG TABLET PO SCH (08:21)
[2021-06-29] MEDS: amLODIPine 5 MG TABLET PO SCH (08:22)
[2021-06-29] MEDS: SODIUM CHLORIDE FLUSH 0.9% 10 ML SYRINGE IVP SCH ×3 (08:22→23:58)
[2021-06-29] MEDS: DEXAMETHASONE 10 MG/ML VIAL IVP SCH (08:22)
[2021-06-29] MEDS: carvediloL 12.5 MG TABLET PO SCH ×2 (08:22→21:07)
[2021-06-29] MEDS: ENOXAPARIN 80 MG/0.8 ML SYRINGE SUBQ SCH ×2 (08:23→21:06)
[2021-06-29] MEDS: INSULIN ASPART 300 UNIT/3 ML PEN SUBQ SCH ×7 (08:23→21:07)
[2021-06-29] MEDS: INSULIN GLARGINE 300 UNIT/3 ML PEN SUBQ SCH (08:24)
[2021-06-29 08:29] LABS: DIFFERENTIAL COMMENT MANUAL=AUTO DIFF; PLATELET ESTIMATE, MANUAL NORMAL (130-450,000) (NORMAL); PLATELET MORPHOLOGY NORMAL APPEARANCE (NORMAL); RBC MORPHOLOGY (MULTIPLE) NORMAL APPEARANCE (NORMAL); WBC MORPHOLOGY (MULTIPLE) NORMAL APPEARANCE (NORMAL)
[2021-06-29] MEDS: LOSARTAN 50 MG TABLET PO SCH (11:43)
[2021-06-29] MEDS: REMDESIVIR 100MG VIAL 100 MG in SODIUM CHLORIDE 0.9% 100ML 100 ML IV SCH (11:43)
--- NOTE | 2021-06-29 12:05 | PROVIDER PROGRESS NOTE ---
Assessment/Plan - Problem List (1) Acute respiratory failure with hypoxia Assessment/Plan: 06/29 improved. pt report he feel better for his breathing. Patient has no acute respiratory distress now. pt had 96% O2 sat on 4 liter of O2 now. Discussed with RT, we will gradually reduce oxygen supplement as the patient tolerated. (2) Pneumonia due to COVID-19 virus Conclusion/Plan: improved, pt report he feel better for his breathing, pt has no cough. Patient finished remdesivir, Continue decatron, lovenox bid. Supplemental oxygen as needed (3) Elevated troponin Conclusion/Plan: His troponin is elevated at 40.1 and his EKG does suggest ST depressions in V2 through V6. Fortunately, he has no chest pain. It was suspected this is likely demand ischemia related to his respiratory failure. Troponin was 40.1. Then was 42.8. A third was 18.9 (4) Insulin dependent diabetes mellitus A1C 6.6, slight elevated glucose, Plan: Add 13 units of Lantus in the morning. continue slide scale, glucose chec k, and Hypoglycemia protocol. (5) Hypokalemia Conclusion/Plan: His potassium is 3.3. 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 creatinine is 0.8 on today (8) KATERINA on CPAP Conclusion/Plan: Continue home CPAP. - Current Meds Current Meds: Current Medications Generic Name Dose Route Start Last Admin Trade Name Issaq PRN Reason Stop Dose Admin Acetaminophen 650 mg 06/25/21 04:24 06/28/21 22:43 Acetaminophen 325 Mg Tablet PO 650 mg Q4HR PRN Administration Pain 1 to 4 Amlodipine Besylate 10 mg 06/29/21 09:00 06/29/21 08:22 Amlodipine 5 Mg Tablet PO 10 mg DAILY EDIE Administration Atorvastatin Calcium 10 mg 06/25/21 21:00 06/28/21 22:44 Atorvastatin 10 Mg Tablet PO 10 mg QPM EDIE Administration Carvedilol 25 mg 06/25/21 12:00 06/29/21 08:22 Carvedilol 12.5 Mg Tablet PO 25 mg BID EDIE Administration Dexamethasone 6 mg 06/26/21 09:00 06/29/21 08:22 Dexamethasone 10 Mg/Ml Vial IVP 07/04/21 09:01 6 mg DAILY EDIE Administration Doxazosin Mesylate 2 mg 06/25/21 21:00 06/28/21 22:43 Doxazosin 1 Mg Tablet PO 2 mg QPM EDIE Administration Enoxaparin Sodium 80 mg 06/26/21 21:00 06/29/21 08:23 Enoxaparin 80 Mg/0.8 Ml Syringe SUBQ 80 mg BID EDIE Administration Gabapentin 600 mg 06/25/21 21:00 06/28/21 22:44 Gabapentin 300 Mg Capsule PO 600 mg QPM EDIE Administration Hydrochlorothiazide 25 mg 06/29/21 09:00 06/29/21 08:21 Hydrochlorothiazide 25 Mg Tablet PO 25 mg DAILY EDIE Administration Insulin Aspart 3 unit 06/26/21 18:00 06/29/21 11:42 Insulin Aspart 300 Unit/3 Ml Pen SUBQ 3 unit TIDWM EDIE Administration Protocol Insulin Aspart 3 - 11 unit 06/26/21 21:00 06/29/21 11:42 Insulin Aspart 300 Unit/3 Ml Pen SUBQ 7 unit 0800,1200,1700,2100 EDIE Administration Protocol Insulin Glargine 13 unit 06/29/21 08:00 06/29/21 08:24 Insulin Glargine 300 Unit/3 Ml Pen SUBQ 13 unit QDBREAKFAST EDIE Administration Losartan Potassium 100 mg 06/29/21 09:00 06/29/21 11:43 Losartan 50 Mg Tablet PO 100 mg DAILY EDIE Administration Sodium Chloride 10 ml 06/25/21 09:00 06/29/21 08:22 Sodium Chloride Flush 0.9% 10 Ml Syringe IVP 10 ml 0100,0900,1700 EDIE Administration Trazodone HCl 50 mg 06/26/21 21:00 06/28/21 22:44 Trazodone 50 Mg Tablet PO 50 mg QPM EDIE Administration - Lab Result Fish Bone Diagrams: 06/29/21 06:05 06/29/21 06:05 - Additional Planning My Orders: My Active Orders 06/29/21 08:00 Insulin Glargine [Lantus Solostar] 13 unit SUBQ QDBREAKFAST 06/29/21 09:00 Losartan [Cozaar] 100 mg PO DAILY amLODIPine [Norvasc] 10 mg PO DAILY hydroCHLOROthiazide [Hydrodiuril] 25 mg PO DAILY Subjective - Subjective Patient Reports: Feeling Better, Resting Comfortably Objective Vital Signs: Vital Signs - 24 hr 06/28/21 06/28/21 06/28/21 17:00 20:13 23:08 Temperature 36.6 C 36.5 C 36.6 C Heart Rate [ 55 L Brachial] Heart Rate [ 65 64 Monitoring electrodes] Respiratory 20 20 24 Rate Blood Pressure 170/80 H [Right Brachial artery] Blood Pressure 112/72 169/89 H [Right Radial artery] O2 Saturation 95 94 93 06/29/21 06/29/21 06/29/21 05:13 07:40 11:46 Temperature 3634 C H 36.6 C 36.6 C Heart Rate [ 67 57 L 61 Brachial] Heart Rate [ Monitoring electrodes] Respiratory 20 20 22 Rate Blood Pressure 167/87 H 175/77 H 153/95 H [Right Brachial artery] Blood Pressure [Right Radial artery] O2 Saturation 93 94 96 Oxygen O2 Source Nasal cannula Oxygen Flow Rate 6 I&O (Last 24 Hrs): Intake and Output Totals x24h 06/27/21 06/28/21 06/29/21 23:59 23:59 23:59 Intake Total 1400 2070 1260 Output Total 175 275 Balance 1400 1895 985 General: Alert, Oriented x3, Cooperative, No acute distress HEENT: Atraumatic, PERRLA Neck: Supple Lymphatic: no adenopathy Neuro: Alert, Non Focal, Oriented Times 3 Cardiovascular: Regular rate, Normal S1, Normal S2 Respiratory: Chest non-tender, No respiratory distress Abdomen: Normal bowel sounds, Soft Extremities: Normal pulses - Results Results: Laboratory Results WBC 8.9 x10^3/uL (4.8-10.8) 06/29/21 06:05 RBC 3.82 10^6/uL (4.70-6.10) L 06/29/21 06:05 Hgb 11.2 g/dL (14.0-18.0) L 06/29/21 06:05 Hct 33.9 % (42.0-52.0) L 06/29/21 06:05 MCV 88.7 fL (80.0-94.0) 06/29/21 06:05 MCH 29.3 pg (27.0-31.0) 06/29/21 06:05 MCHC 33.0 g/dL (32.0-36.0) 06/29/21 06:05 RDW 14.8 % (12.0-15.0) 06/29/21 06:05 Plt Count 320 10^3/uL (130-450) 06/29/21 06:05 MPV 10.9 fL (7.4-11.4) 06/29/21 06:05 Neut # (Auto) 5.8 10^3/uL (1.5-6.6) 06/29/21 06:05 Lymph # (Auto) 1.8 10^3/uL (1.5-3.5) 06/29/21 06:05 [place] # (Auto) 0.5 10^3/uL (0.0-1.0) 06/29/21 06:05 Eos # (Auto) 0.1 10^3/uL (0.0-0.7) 06/29/21 06:05 Baso # (Auto) 0.0 10^3/uL (0.0-0.1) 06/29/21 06:05 Absolute Nucleated RBC 0.03 x10^3/uL 06/29/21 06:05 Total Counted 100 06/28/21 05:30 Band Neuts % (Manual) Not Reportable 06/29/21 06:05 Abnorm Lymph % (Manual) Not Reportable 06/29/21 06:05 Nucleated RBC % 0.3 /100WBC 06/29/21 06:05 Neutrophils # (Manual) Not Reportable 06/29/21 06:05 Lymphocytes # (Manual) Not Reportable 06/29/21 06:05 Monocytes # (Manual) Not Reportable 06/29/21 06:05 Eosinophils # (Manual) Not Reportable 06/29/21 06:05 Basophils # (Manual) Not Reportable 06/29/21 06:05 Differential Comment MANUAL=AUTO DIFF 06/29/21 06:05 WBC Morphology NORMAL APPEARANCE (NORMAL) 06/29/21 06:05 Platelet Estimate NORMAL (130-450,000) (NORMAL) 06/29/21 06:05 Platelet Morphology NORMAL APPEARANCE (NORMAL) 06/29/21 06:05 RBC Morph Micro Appear NORMAL APPEARANCE (NORMAL) 06/29/21 06:05 D-Dimer 492.5 ng/mL (200.0-255.0) H 06/25/21 05:23 Sodium 139 mmol/L (135-145) 06/29/21 06:05 Potassium 3.3 mmol/L (3.5-5.0) L 06/29/21 06:05 Chloride 98 mmol/L (101-111) L 06/29/21 06:05 Carbon Dioxide 31 mmol/L (21-32) 06/29/21 06:05 Anion Gap 10.0 (6-13) 06/29/21 06:05 BUN 26 mg/dL (6-20) H 06/29/21 06:05 Creatinine 0.8 mg/dL (0.6-1.2) 06/29/21 06:05 Estimated GFR (MDRD) 94 (>89) 06/29/21 06:05 Glucose 174 mg/dL (70-100) H 06/29/21 06:05 POC Whole Bld Glucose 236 mg/dL (70 - 100) H 06/29/21 11:36 Estimat Average Glucose 143 mg/dL (70-100) H 06/25/21 04:03 Hemoglobin A1c % 6.6 % (4.27-6.07) H 06/25/21 04:03 Calcium 8.8 mg/dL (8.5-10.3) 06/29/21 06:05 Magnesium 2.1 mg/dL (1.7-2.8) 06/25/21 10:00 Total Bilirubin 1.1 mg/dL (0.2-1.0) H 06/25/21 04:03 AST 57 IU/L (10-42) H 06/25/21 04:03 ALT 32 IU/L (10-60) 06/25/21 04:03 Alkaline Phosphatase 70 IU/L (42-121) 06/25/21 04:03 Troponin I High Sens 18.9 ng/L (2.3-19.7) 06/26/21 17:15 C-Reactive Protein 4.5 mg/dL (0-1.0) H 06/25/21 05:23 B-Natriuretic Peptide 138 pg/mL (5-100) H 06/25/21 05:23 Total Protein 6.9 g/dL (6.7-8.2) 06/25/21 04:03 Albumin 3.7 g/dL (3.2-5.5) 06/25/21 04:03 Globulin 3.2 g/dL (2.1-4.2) 06/25/21 04:03 Albumin/Globulin Ratio 1.2 (1.0-2.2) 06/25/21 04:03 Lipase 41 U/L (22-51) 06/25/21 04:03 Nasal Adenovirus (PCR) NOT DETECTED 06/25/21 04:05 Nasal B. parapertussis DNA (PCR) NOT DETECTED 06/25/21 04:05 Nasal Coronavir 229E PCR NOT DETECTED 06/25/21 04:05 Nasal Coronavir HKU1 PCR NOT DETECTED 06/25/21 04:05 Nasal Coronavir NL63 PCR NOT DETECTED 06/25/21 04:05 Nasal Coronavir OC43 PCR NOT DETECTED 06/25/21 04:05 Nasal Enterovir/Rhinovir PCR NOT DETECTED 06/25/21 04:05 Nasal Influenza B PCR NOT DETECTED 06/25/21 04:05 Nasal Influenza A PCR NOT DETECTED 06/25/21 04:05 Nasal Parainfluen 1 PCR NOT DETECTED 06/25/21 04:05 Nasal Parainfluen 2 PCR NOT DETECTED 06/25/21 04:05 Nasal Parainfluen 3 PCR NOT DETECTED 06/25/21 04:05 Nasal Parainfluen 4 PCR NOT DETECTED 06/25/21 04:05 Nasal RSV (PCR) NOT DETECTED 06/25/21 04:05 Nasal B.pertussis DNA PCR NOT DETECTED 06/25/21 04:05 Nasal C.pneumoniae (PCR) NOT DETECTED 06/25/21 04:05 [place] Human Metapneumo PCR NOT DETECTED 06/25/21 04:05 Nasal M.pneumoniae (PCR) NOT DETECTED 06/25/21 04:05 Nasal SARS-CoV-2 (PCR) DETECTED A 06/25/21 04:05 - Procedures Procedures: Procedures CATARAC PHACOEMULS/ASPIR (07/25/13) INSERT LENS AT CATAR EXT (07/25/13) ABX Reporting Has patient been on IV antibiotics over the past 48 hours?: No Current Medications - Current Medications Current Medications: Active Medications Acetaminophen (Acetaminophen 325 Mg Tablet) 650 mg PO Q4HR PRN PRN Reason: Pain 1 to 4 Last Admin: 06/28/21 22:43 Dose: 650 mg Documented by: Amlodipine Besylate (Amlodipine 5 Mg Tablet) 10 mg PO DAILY EDIE Last Admin: 06/29/21 08:22 Dose: 10 mg Documented by: Atorvastatin Calcium (Atorvastatin 10 Mg Tablet) 10 mg PO QPM [facility] Last Admin: 06/28/21 22:44 Dose: 10 mg Documented by: Carvedilol (Carvedilol 12.5 Mg Tablet) 25 mg PO BID [facility] Last Admin: 06/29/21 08:22 Dose: 25 mg Documented by: Dexamethasone (Dexamethasone 10 Mg/Ml Vial) 6 mg IVP DAILY [facility] Stop: 07/04/21 09:01 Last Admin: 06/29/21 08:22 Dose: 6 mg Documented by: Doxazosin Mesylate (Doxazosin 1 Mg Tablet) 2 mg PO QPM [facility] Last Admin: 06/28/21 22:43 Dose: 2 mg Documented by: Enoxaparin Sodium (Enoxaparin 80 Mg/0.8 Ml Syringe) 80 mg SUBQ BID [facility] Last Admin: 06/29/21 08:23 Dose: 80 mg Documented by: Gabapentin (Gabapentin 300 Mg Capsule) 600 mg PO QPM [facility] Last Admin: 06/28/21 22:44 Dose: 600 mg Documented by: Hydrochlorothiazide (Hydrochlorothiazide 25 Mg Tablet) 25 mg PO DAILY [facility] Last Admin: 06/29/21 08:21 Dose: 25 mg Documented by: Insulin Aspart (Insulin Aspart 300 Unit/3 Ml Pen) 3 unit SUBQ TIDWM [facility]; Protocol Last Admin: 06/29/21 11:42 Dose: 3 unit Documented by: Insulin Aspart (Insulin Aspart 300 Unit/3 Ml Pen) 3 - 11 unit SUBQ 0800,1200,1700,2100 [facility]; Protocol Last Admin: 06/29/21 11:42 Dose: 7 unit Documented by: Insulin Glargine (Insulin Glargine 300 Unit/3 Ml Pen) 13 unit SUBQ QDBREAKFAST [facility] Last Admin: 06/29/21 08:24 Dose: 13 unit Documented by: Losartan Potassium (Losartan 50 Mg Tablet) 100 mg PO DAILY [facility] Last Admin: 06/29/21 11:43 Dose: 100 mg Documented by: Ondansetron HCl (Ondansetron Odt 4 Mg Tablet) 4 mg TL Q6HR PRN PRN Reason: Nausea / Vomiting Ondansetron HCl (Ondansetron 4 Mg/2 Ml Vial) 4 mg IVP Q6HR PRN PRN Reason: Nausea / Vomiting Sodium Chloride (Sodium Chloride Flush 0.9% 10 Ml Syringe) 10 ml IVP PRN PRN PRN Reason: NEEDED PER PROVIDER ORDERS Sodium Chloride (Sodium Chloride Flush 0.9% 10 Ml Syringe) 10 ml IVP 0100,0900,1700 [facility] Last Admin: 06/29/21 08:22 Dose: 10 ml Documented by: Trazodone HCl (Trazodone 50 Mg Tablet) 50 mg PO QPM [facility] Last Admin: 06/28/21 22:44 Dose: 50 mg Documented by: Amlodipine Besylate 10 mg PO DAILY 02/07/13 Carvedilol 25 mg PO BID 02/07/13 Simvastatin [Zocor] 20 mg PO QPM 02/07/13 Ubidecarenone [Co Q-10] 100 mg PO DAILY 02/07/13 Gabapentin [Neurontin] 600 mg PO QPM 08/18/20 Telmisartan [Micardis] 80 mg PO DAILY 08/18/20 hydroCHLOROthiazide [Hydrochlorothiazide] 25 mg PO DAILY 08/18/20 Doxazosin Mesylate [Cardura] 2 mg PO DAILY 06/25/21 Insulin Glargine [Lantus Solostar] 120 units SQ QPM 06/25/21 metFORMIN [Glucophage] 1,000 mg PO BID 06/25/21
[2021-06-29] MEDS: ACETAMINOPHEN 325 MG TABLET PO PRN (17:50)
[2021-06-29] MEDS: DOXAZOSIN 1 MG TABLET PO SCH (21:06)
[2021-06-29] MEDS: GABAPENTIN 300 MG CAPSULE PO SCH (21:07)
[2021-06-29] MEDS: traZODone 50 MG TABLET PO SCH (21:08)
[2021-06-29] MEDS: ATORVASTATIN 10 MG TABLET PO SCH (21:08)
[2021-06-30 09:28] LABS: BASOPHILS % (AUTO) 0.3 %; EOSINOPHILS # (AUTO) 0.1 10^3/uL (0.0-0.7); EOSINOPHILS % (AUTO) 1.2 %; HCT - HEMATOCRIT 37.2 % (42.0-52.0); HGB - HEMOGLOBIN 12.2 g/dL (14.0-18.0); MEAN CORPUSCULAR HGB CONC 32.8 g/dL (32.0-36.0); MEAN CORPUSCULAR VOLUME 88.4 fL (80.0-94.0); MEAN PLATELET VOLUME 10.7 fL (7.4-11.4); MONOCYTES # (AUTO) 0.6 10^3/uL (0.0-1.0); MONOCYTES % (AUTO) 5.7 %; NEUTROPHILS # (AUTO) 6.4 10^3/uL (1.5-6.6); NEUTROPHILS % (AUTO) 65.3 %; NRBC ABSOLUTE COUNT (AUTO) 0.07 x10^3/uL; NUCLEATED RED BLOOD CELLS AUTO 0.7 /100WBC; PLT - PLATELET COUNT 345 10^3/uL (130-450); RED BLOOD COUNT 4.21 10^6/uL (4.70-6.10); RED CELL DISTRIBUTION WIDTH 14.9 % (12.0-15.0); WHITE BLOOD COUNT 9.9 x10^3/uL (4.8-10.8)
[2021-06-30 09:36] LABS: CALCIUM 8.9 mg/dL (8.5-10.3); CREATININE 0.9 mg/dL (0.6-1.2); POTASSIUM 3.3 mmol/L (3.5-5.0)
[2021-06-30 09:59] LABS: SLIDE REVIEW? Indicated
[2021-06-30 10:23] LABS: PLATELET ESTIMATE, MANUAL NORMAL (130-450,000) (NORMAL); PLATELET MORPHOLOGY NORMAL APPEARANCE (NORMAL); RBC MORPHOLOGY (MULTIPLE) NORMAL APPEARANCE (NORMAL); WBC MORPHOLOGY (MULTIPLE) NORMAL APPEARANCE (NORMAL)
[2021-06-30] MEDS: INSULIN ASPART 300 UNIT/3 ML PEN SUBQ SCH ×7 (10:40→21:48)
[2021-06-30] MEDS: INSULIN GLARGINE 300 UNIT/3 ML PEN SUBQ SCH (10:41)
[2021-06-30] MEDS: hydroCHLOROthiazide 25 MG TABLET PO SCH (10:41)
[2021-06-30] MEDS: DEXAMETHASONE 10 MG/ML VIAL IVP SCH (10:41)
[2021-06-30] MEDS: carvediloL 12.5 MG TABLET PO SCH ×2 (10:42→21:42)
[2021-06-30] MEDS: LOSARTAN 50 MG TABLET PO SCH (10:42)
[2021-06-30] MEDS: amLODIPine 5 MG TABLET PO SCH (10:43)
[2021-06-30] MEDS: ENOXAPARIN 80 MG/0.8 ML SYRINGE SUBQ SCH ×2 (10:45→21:41)
[2021-06-30] MEDS: SODIUM CHLORIDE FLUSH 0.9% 10 ML SYRINGE IVP SCH ×2 (10:48→17:32)
--- NOTE | 2021-06-30 13:49 | PROVIDER PROGRESS NOTE ---
Assessment/Plan - Problem List (1) Acute respiratory failure with hypoxia Assessment/Plan: 06/30 pt had 95% O2 sat on 2 liter of O2, improved. pt has no acute respiratory distress now, continue decatron and lovenox, and O2 supplement as needed 06/29 improved. pt report he feel better for his breathing. Patient has no acute respiratory distress now. pt had 96% O2 sat on 4 liter of O2 now. Discussed with RT, we will gradually reduce oxygen supplement as the patient tolerated. (2) Pneumonia due to COVID-19 virus Conclusion/Plan: 06/30 pt has no cough, no acute respiratory distress now. Patient finished remdesivir, Continue decatron, lovenox bid. Supplemental oxygen as needed. plan d/c on tomorrow after O2 desat study. improved, pt report he feel better for his breathing, pt has no cough. Patient finished remdesivir, Continue decatron, lovenox bid. Supplemental oxygen as needed (3) Elevated troponin Conclusion/Plan: His troponin is elevated at 40.1 and his EKG does suggest ST depressions in V2 through V6. Fortunately, he has no chest pain. It was suspected this is likely demand ischemia related to his respiratory failure. Troponin was 40.1. Then was 42.8. A third was 18.9 (4) Insulin dependent diabetes mellitus 06/30 slight elevated glucose, likely due to steroid usage for covid 19 treatment, increase slide scale, ACHS check glucose level. A1C 6.6, slight elevated glucose, Plan: Add 13 units of Lantus in the morning. continue slide scale, glucose check, and Hypoglycemia protocol. (5) Hypokalemia Conclusion/Plan: His potassium is 3.3. 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 creatinine is 0.8 on today (8) KATERINA on CPAP Conclusion/Plan: Continue home CPAP. - Current Meds Current Meds: Current Medications Generic Name Dose Route Start Last Admin Trade Name Freq PRN Reason Stop Dose Admin Acetaminophen 650 mg 06/25/21 04:24 06/29/21 17:50 Acetaminophen 325 Mg Tablet PO 650 mg Q4HR PRN Administration Pain 1 to 4 Amlodipine Besylate 10 mg 06/29/21 09:00 06/30/21 10:43 Amlodipine 5 Mg Tablet PO 10 mg DAILY EDIE Administration Atorvastatin Calcium 10 mg 06/25/21 21:00 06/29/21 21:08 Atorvastatin 10 Mg Tablet PO 10 mg QPM EDIE Administration Carvedilol 25 mg 06/25/21 12:00 06/30/21 10:42 Carvedilol 12.5 Mg Tablet PO 25 mg BID EDIE Administration Dexamethasone 6 mg 06/26/21 09:00 06/30/21 10:41 Dexamethasone 10 Mg/Ml Vial IVP 07/04/21 09:01 6 mg DAILY EDIE Administration Doxazosin Mesylate 2 mg 06/25/21 21:00 06/29/21 21:06 Doxazosin 1 Mg Tablet PO 2 mg QPM EDIE Administration Enoxaparin Sodium 80 mg 06/26/21 21:00 06/30/21 10:45 Enoxaparin 80 Mg/0.8 Ml Syringe SUBQ 80 mg BID EDIE Administration Gabapentin 600 mg 06/25/21 21:00 06/29/21 21:07 Gabapentin 300 Mg Capsule PO 600 mg QPM EDIE Administration Hydrochlorothiazide 25 mg 06/29/21 09:00 06/30/21 10:41 Hydrochlorothiazide 25 Mg Tablet PO 25 mg DAILY EDIE Administration Insulin Aspart 3 - 11 unit 06/26/21 21:00 06/30/21 13:18 Insulin Aspart 300 Unit/3 Ml Pen SUBQ 5 unit 0800,1200,1700,2100 EDIE Administration Protocol Losartan Potassium 100 mg 06/29/21 09:00 06/30/21 10:42 Losartan 50 Mg Tablet PO 100 mg DAILY EDIE Administration Sodium Chloride 10 ml 06/25/21 09:00 06/30/21 10:48 Sodium Chloride Flush 0.9% 10 Ml Syringe IVP 10 ml 0100,0900,1700 EDIE Administration Trazodone HCl 50 mg 06/26/21 21:00 06/29/21 21:08 Trazodone 50 Mg Tablet PO 50 mg QPM EDIE Administration - Lab Result Fish Bone Diagrams: 06/30/21 09:04 06/30/21 09:04 - Additional Planning My Orders: My Active Orders 06/30/21 17:00 Insulin Aspart [NovoLOG] 5 unit SUBQ TIDWM 07/01/21 08:00 Insulin Glargine [Lantus Solostar] 15 unit SUBQ QDBREAKFAST Subjective - Subjective Patient Reports: Feeling Better, Resting Comfortably Objective Vital Signs: Vital Signs - 24 hr 06/29/21 06/29/21 06/30/21 17:00 20:55 00:02 Temperature 36.7 C 36.5 C 36.9 C Heart Rate [ 66 68 57 L Brachial] Respiratory 22 20 18 Rate Blood Pressure 161/64 H [Right Brachial artery] Blood Pressure 140/76 H 162/76 H [Right Radial artery] O2 Saturation 92 98 93 06/30/21 06/30/21 06/30/21 03:41 08:10 12:13 Temperature 36.8 C 36.4 C L 36.6 C Heart Rate [ 57 L 58 L 63 Brachial] Respiratory 20 18 20 Rate Blood Pressure 171/75 H 172/86 H 152/71 H [Right Brachial artery] Blood Pressure [Right Radial artery] O2 Saturation 93 92 95 Oxygen O2 Source Nasal cannula Oxygen Flow Rate 6 I&O (Last 24 Hrs): Intake and Output Totals x24h 06/28/21 06/29/21 06/30/21 23:59 23:59 23:59 Intake Total 2070 2570 990 Output Total 175 275 Balance 1895 2295 990 General: Alert, Oriented x3, Cooperative, No acute distress HEENT: Atraumatic Neck: Supple Lymphatic: no adenopathy Neuro: Alert, Non Focal, Oriented Times 3 Cardiovascular: Regular rate, Normal S1, Normal S2 Respiratory: Chest non-tender, No respiratory distress Abdomen: Normal bowel sounds, Soft, No tenderness Extremities: Normal pulses - Results Results: Laboratory Results WBC 9.9 x10^3/uL (4.8-10.8) 06/30/21 09:04 RBC 4.21 10^6/uL (4.70-6.10) L 06/30/21 09:04 Hgb 12.2 g/dL (14.0-18.0) L 06/30/21 09:04 Hct 37.2 % (42.0-52.0) L 06/30/21 09:04 MCV 88.4 fL (80.0-94.0) 06/30/21 09:04 MCH 29.0 pg (27.0-31.0) 06/30/21 09:04 MCHC 32.8 g/dL (32.0-36.0) 06/30/21 09:04 RDW 14.9 % (12.0-15.0) 06/30/21 09:04 Plt Count 345 10^3/uL (130-450) 06/30/21 09:04 MPV 10.7 fL (7.4-11.4) 06/30/21 09:04 Neut # (Auto) 6.4 10^3/uL (1.5-6.6) 06/30/21 09:04 Lymph # (Auto) 2.0 10^3/uL (1.5-3.5) 06/30/21 09:04 [place] # (Auto) 0.6 10^3/uL (0.0-1.0) 06/30/21 09:04 Eos # (Auto) 0.1 10^3/uL (0.0-0.7) 06/30/21 09:04 Baso # (Auto) 0.0 10^3/uL (0.0-0.1) 06/30/21 09:04 Absolute Nucleated RBC 0.07 x10^3/uL 06/30/21 09:04 Total Counted 100 06/28/21 05:30 Band Neuts % (Manual) Not Reportable 06/29/21 06:05 Abnorm Lymph % (Manual) Not Reportable 06/29/21 06:05 Nucleated RBC % 0.7 /100WBC 06/30/21 09:04 Neutrophils # (Manual) Not Reportable 06/29/21 06:05 Lymphocytes # (Manual) Not Reportable 06/29/21 06:05 Monocytes # (Manual) Not Reportable 06/29/21 06:05 Eosinophils # (Manual) Not Reportable 06/29/21 06:05 Basophils # (Manual) Not Reportable 06/29/21 06:05 Differential Comment MANUAL=AUTO DIFF 06/29/21 06:05 Manual Slide Review Indicated 06/30/21 09:04 WBC Morphology NORMAL APPEARANCE (NORMAL) 06/30/21 09:04 Platelet Estimate NORMAL (130-450,000) (NORMAL) 06/30/21 09:04 Platelet Morphology NORMAL APPEARANCE (NORMAL) 06/30/21 09:04 RBC Morph Micro Appear NORMAL APPEARANCE (NORMAL) 06/30/21 09:04 D-Dimer 492.5 ng/mL (200.0-255.0) H 06/25/21 05:23 Sodium 138 mmol/L (135-145) 06/30/21 09:04 Potassium 3.3 mmol/L (3.5-5.0) L 06/30/21 09:04 Chloride 94 mmol/L (101-111) L 06/30/21 09:04 Carbon Dioxide 31 mmol/L (21-32) 06/30/21 09:04 Anion Gap 13.0 (6-13) 06/30/21 09:04 BUN 21 mg/dL (6-20) H 06/30/21 09:04 Creatinine 0.9 mg/dL (0.6-1.2) 06/30/21 09:04 Estimated GFR (MDRD) 82 (>89) L 06/30/21 09:04 Glucose 207 mg/dL (70-100) H 06/30/21 09:04 POC Whole Bld Glucose 224 mg/dL (70 - 100) H 06/30/21 12:02 Estimat Average Glucose 143 mg/dL (70-100) H 06/25/21 04:03 Hemoglobin A1c % 6.6 % (4.27-6.07) H 06/25/21 04:03 Calcium 8.9 mg/dL (8.5-10.3) 06/30/21 09:04 Magnesium 2.1 mg/dL (1.7-2.8) 06/25/21 10:00 Total Bilirubin 1.1 mg/dL (0.2-1.0) H 06/25/21 04:03 AST 57 IU/L (10-42) H 06/25/21 04:03 ALT 32 IU/L (10-60) 06/25/21 04:03 Alkaline Phosphatase 70 IU/L (42-121) 06/25/21 04:03 Troponin I High Sens 18.9 ng/L (2.3-19.7) 06/26/21 17:15 C-Reactive Protein 4.5 mg/dL (0-1.0) H 06/25/21 05:23 B-Natriuretic Peptide 138 pg/mL (5-100) H 06/25/21 05:23 Total Protein 6.9 g/dL (6.7-8.2) 06/25/21 04:03 Albumin 3.7 g/dL (3.2-5.5) 06/25/21 04:03 Globulin 3.2 g/dL (2.1-4.2) 06/25/21 04:03 Albumin/Globulin Ratio 1.2 (1.0-2.2) 06/25/21 04:03 Lipase 41 U/L (22-51) 06/25/21 04:03 Nasal Adenovirus (PCR) NOT DETECTED 06/25/21 04:05 Nasal B. parapertussis DNA (PCR) NOT DETECTED 06/25/21 04:05 Nasal Coronavir 229E PCR NOT DETECTED 06/25/21 04:05 Nasal Coronavir HKU1 PCR NOT DETECTED 06/25/21 04:05 Nasal Coronavir NL63 PCR NOT DETECTED 06/25/21 04:05 Nasal Coronavir OC43 PCR NOT DETECTED 06/25/21 04:05 Nasal Enterovir/Rhinovir PCR NOT DETECTED 06/25/21 04:05 Nasal Influenza B PCR NOT DETECTED 06/25/21 04:05 Nasal Influenza A PCR NOT DETECTED 06/25/21 04:05 Nasal Parainfluen 1 PCR NOT DETECTED 06/25/21 04:05 Nasal Parainfluen 2 PCR NOT DETECTED 06/25/21 04:05 Nasal Parainfluen 3 PCR NOT DETECTED 06/25/21 04:05 Nasal Parainfluen 4 PCR NOT DETECTED 06/25/21 04:05 Nasal RSV (PCR) NOT DETECTED 06/25/21 04:05 Nasal B.pertussis DNA PCR NOT DETECTED 06/25/21 04:05 Nasal C.pneumoniae (PCR) NOT DETECTED 06/25/21 04:05 Antonio Human Metapneumo PCR NOT DETECTED 06/25/21 04:05 Nasal M.pneumoniae (PCR) NOT DETECTED 06/25/21 04:05 Nasal SARS-CoV-2 (PCR) DETECTED A 06/25/21 04:05 - Procedures Procedures: Procedures CATARAC PHACOEMULS/ASPIR (07/25/13) INSERT LENS AT CATAR EXT (07/25/13) ABX Reporting Has patient been on IV antibiotics over the past 48 hours?: No Current Medications - Current Medications Current Medications: Active Medications Acetaminophen (Acetaminophen 325 Mg Tablet) 650 mg PO Q4HR PRN PRN Reason: Pain 1 to 4 Last Admin: 06/29/21 17:50 Dose: 650 mg Documented by: Amlodipine Besylate (Amlodipine 5 Mg Tablet) 10 mg PO DAILY [facility] Last Admin: 06/30/21 10:43 Dose: 10 mg Documented by: Atorvastatin Calcium (Atorvastatin 10 Mg Tablet) 10 mg PO QPM [facility] Last Admin: 06/29/21 21:08 Dose: 10 mg Documented by: Carvedilol (Carvedilol 12.5 Mg Tablet) 25 mg PO BID [facility] Last Admin: 06/30/21 10:42 Dose: 25 mg Documented by: Dexamethasone (Dexamethasone 10 Mg/Ml Vial) 6 mg IVP DAILY [facility] Stop: 07/04/21 09:01 Last Admin: 06/30/21 10:41 Dose: 6 mg Documented by: Doxazosin Mesylate (Doxazosin 1 Mg Tablet) 2 mg PO QPM [facility] Last Admin: 06/29/21 21:06 Dose: 2 mg Documented by: Enoxaparin Sodium (Enoxaparin 80 Mg/0.8 Ml Syringe) 80 mg SUBQ BID [facility] Last Admin: 06/30/21 10:45 Dose: 80 mg Documented by: Gabapentin (Gabapentin 300 Mg Capsule) 600 mg PO QPM [facility] Last Admin: 06/29/21 21:07 Dose: 600 mg Documented by: Hydrochlorothiazide (Hydrochlorothiazide 25 Mg Tablet) 25 mg PO DAILY [facility] Last Admin: 06/30/21 10:41 Dose: 25 mg Documented by: Insulin Aspart (Insulin Aspart 300 Unit/3 Ml Pen) 3 - 11 unit SUBQ 0800,1200,1700,2100 [facility]; Protocol Last Admin: 06/30/21 13:18 Dose: 5 unit Documented by: Insulin Aspart (Insulin Aspart 300 Unit/3 Ml Pen) 5 unit SUBQ TIDWM [facility]; P rotocol Insulin Glargine (Insulin Glargine 300 Unit/3 Ml Pen) 15 unit SUBQ QDBREAKFAST [facility] Losartan Potassium (Losartan 50 Mg Tablet) 100 mg PO DAILY [facility] Last Admin: 06/30/21 10:42 Dose: 100 mg Documented by: Ondansetron HCl (Ondansetron Odt 4 Mg Tablet) 4 mg TL Q6HR PRN PRN Reason: Nausea / Vomiting Ondansetron HCl (Ondansetron 4 Mg/2 Ml Vial) 4 mg IVP Q6HR PRN PRN Reason: Nausea / Vomiting Sodium Chloride (Sodium Chloride Flush 0.9% 10 Ml Syringe) 10 ml IVP PRN PRN PRN Reason: NEEDED PER PROVIDER ORDERS Sodium Chloride (Sodium Chloride Flush 0.9% 10 Ml Syringe) 10 ml IVP 0100 ,0900,1700 [facility] Last Admin: 06/30/21 10:48 Dose: 10 ml Documented by: Trazodone HCl (Trazodone 50 Mg Tablet) 50 mg PO QPM [facility] Last Admin: 06/29/21 21:08 Dose: 50 mg Documented by: Amlodipine Besylate 10 mg PO DAILY 02/07/13 Carvedilol 25 mg PO BID 02/07/13 Simvastatin [Zocor] 20 mg PO QPM 02/07/13 Ubidecarenone [Co Q-10] 100 mg PO DAILY 02/07/13 Gabapentin [Neurontin] 600 mg PO QPM 08/18/20 Telmisartan [Micardis] 80 mg PO DAILY 08/18/20 hydroCHLOROthiazide [Hydrochlorothiazide] 25 mg PO DAILY 08/18/20 Doxazosin Mesylate [Cardura] 2 mg PO DAILY 06/25/21 Insulin Glargine [Lantus Solostar] 120 units SQ QPM 06/25/21 metFORMIN [Glucophage] 1,000 mg PO BID 06/25/21
[2021-06-30] MEDS ORDERED: INSULIN GLARGINE 300 UNIT/3 ML PEN SUBQ SCH ×2 (21:00)
[2021-06-30] MEDS: ACETAMINOPHEN 325 MG TABLET PO PRN (21:41)
[2021-06-30] MEDS: DOXAZOSIN 1 MG TABLET PO SCH (21:41)
[2021-06-30] MEDS: ATORVASTATIN 10 MG TABLET PO SCH (21:42)
[2021-06-30] MEDS: traZODone 50 MG TABLET PO SCH (21:42)
[2021-06-30] MEDS: GABAPENTIN 300 MG CAPSULE PO SCH (21:42)
[2021-07-01] MEDS ORDERED: hydrALAZINE INJ 20 MG/ML VIAL IVP ONE ×2 (01:18→03:33)
[2021-07-01] MEDS: SODIUM CHLORIDE FLUSH 0.9% 10 ML SYRINGE IVP SCH ×2 (01:51→08:43)
[2021-07-01] MEDS ORDERED: hydrALAZINE INJ 20 MG/ML VIAL ONE (03:55)
[2021-07-01] MEDS: amLODIPine 5 MG TABLET PO SCH ×2 (05:09→08:42)
[2021-07-01] MEDS ORDERED: POTASSIUM CHLORIDE 20 MEQ TABLET PO ONE (07:17)
[2021-07-01] MEDS ORDERED: INSULIN GLARGINE 300 UNIT/3 ML PEN SUBQ SCH ×2 (08:00)
[2021-07-01] MEDS: INSULIN ASPART 300 UNIT/3 ML PEN SUBQ SCH ×4 (08:39→12:17)
[2021-07-01] MEDS: ENOXAPARIN 80 MG/0.8 ML SYRINGE SUBQ SCH (08:40)
[2021-07-01] MEDS: LOSARTAN 50 MG TABLET PO SCH (08:41)
[2021-07-01] MEDS: carvediloL 12.5 MG TABLET PO SCH (08:41)
[2021-07-01] MEDS: DEXAMETHASONE 10 MG/ML VIAL IVP SCH (08:41)
[2021-07-01] MEDS: hydroCHLOROthiazide 25 MG TABLET PO SCH (08:42)
[2021-07-01 11:26] LABS: BASOPHILS % (AUTO) 0.3 %; EOSINOPHILS % (AUTO) 0.4 %; HCT - HEMATOCRIT 37.4 % (42.0-52.0); HGB - HEMOGLOBIN 12.5 g/dL (14.0-18.0); LYMPHOCYTES # (AUTO) 1.6 10^3/uL (1.5-3.5); LYMPHOCYTES % (AUTO) 16.9 %; MEAN CORPUSCULAR HEMOGLOBIN 29.8 pg (27.0-31.0); MEAN CORPUSCULAR HGB CONC 33.4 g/dL (32.0-36.0); MEAN PLATELET VOLUME 10.4 fL (7.4-11.4); MONOCYTES # (AUTO) 0.6 10^3/uL (0.0-1.0); MONOCYTES % (AUTO) 6.4 %; NEUTROPHILS # (AUTO) 6.6 10^3/uL (1.5-6.6); NEUTROPHILS % (AUTO) 68.3 %; PLT - PLATELET COUNT 329 10^3/uL (130-450); RED CELL DISTRIBUTION WIDTH 15.3 % (12.0-15.0); WHITE BLOOD COUNT 9.7 x10^3/uL (4.8-10.8)
[2021-07-01 11:27] LABS: SLIDE REVIEW? Indicated
[2021-07-01 11:34] LABS: PLATELET MORPHOLOGY NORMAL APPEARANCE (NORMAL)
[2021-07-01 11:35] LABS: PLATELET ESTIMATE, MANUAL NORMAL (130-450,000) (NORMAL); RBC MORPHOLOGY (MULTIPLE) NORMAL APPEARANCE (NORMAL); WBC MORPHOLOGY (MULTIPLE) NORMAL APPEARANCE (NORMAL)
[2021-07-01 12:11] VITALS: BP 150/69
[2021-07-01 13:05] LABS: POTASSIUM 3.6 mmol/L (3.5-5.0)
[2021-07-01 13:06] LABS: CALCIUM 8.9 mg/dL (8.5-10.3); CREATININE 0.9 mg/dL (0.6-1.2)
--- NOTE | 2021-07-01 13:14 | Discharge Plan ---
Discharge Plan Problem Reviewed?: Yes Disposition: Home, Self Care Condition: Stable Diet: Diabetic Activity Restrictions: Activity as Tolerated Shower Restrictions: No (fall precaution) Instruction Topics: COVID-19 [facility], COVID-19 [facility] Department Statement Health Concerns: Covid 19 Plan of Treatment: You were found to have Covid 19 pneumonia and You were treated for the infection at hospital. After You have O2 Desaturation study, You are no required to have oxygen supplement At rest and exertion. You may follow-up with [facility] and [facility] COVID-19 recommendations. You may resume your home medication as the schedule. Care Goals: stabilization and improvement of your medical conditions Assessment: discussed the care plan with you, you understood Additional Instructions or Follow Up instructions: You may follow-up with your PCP in 1 to 2 weeks. Should your symptoms return or worsen, including difficult for breathing and oxygen saturation drop, you may present to the ER or call 911 for help Follow-Up Care: Outpatient Rehab - PT No Smoking: If you smoke, Please STOP! Call for help.
--- NOTE | 2021-07-01 13:25 | DISCHARGE SUMMARY ---
Discharge Summary Admit Date: 06/25/21 Discharge Date: 07/01/21 Discharging Provider: Jean Pierre Shook Primary Care Provider: Dr. Compa Hogue Condition at Discharge: Stable Discharge Disposition: 01 Home, Self Care Discharge Facility Name: home - DIAGNOSES Discharge Diagnoses with Status of Each Condition: (1) Acute respiratory failure with hypoxia resolved. pt has no acute respiratory distress. pt had O2 desat study by RT. pt had 93% Oxygen saturation on room air, patient had 90% oxygen saturation on exertion. (2) Pneumonia due to COVID-19 virus stable. Discussed with patient, patient may continue follow-up with [facility] for COVID-19 recommendations (3) Elevated troponin pt had slight elevated troponin, flat and drop value in serial test. this is li terry demand ischemia related to his respiratory failure. (4) Insulin dependent diabetes mellitus stable, A1C is 6.6. resume home meds (5) Hypokalemia resume (6) Hypertension stable (7) TOÑO resolved (8) KATERINA on CPAP stable, Continue home CPAP. - HPI History of Present Illness: refer from Dr. Fermin's HPI on 06/25/21 This is a 76-year-old male with a past medical history significant for hypertension and insulin-dependent diabetes mellitus, KATERINA on CPAP who presents today complaining of worsening shortness of breath. He states he was diagnosed with Covid about 2 weeks ago. At that time, his daughter and son-in-law were also ill with Covid. He states he began to feel short of breath but it has worsened over the past 2 weeks and so he came to the emergency department early this morning. He is not vaccinated. He reports having a poor appetite and decreased oral intake over the past 2 weeks. This past week he stopped taking his insulin because he was not eating very much and just felt miserable overall. He also has not been taking his home antihypertensives over the past week just due to feeling unwell. He states he does have KATERINA and is compliant with his CPAP. He must use it whenever he sleeps well she wakes up in chills and sweats. He denies any cardiac history including CHF, coronary artery disease. His legs are a little edematous and states this is his baseline. In the emergency department, he was noted to be febrile and hypoxic initially requiring 6 L of oxygen. Chest x-ray was consistent with pneumonia. He was given Decadron and medicine was consulted for admission. We discussed goals of care and he would like to be a DNR although he is okay with intubation as long as it is temporary. He would not want prolonged mechanical ventilation. - ALLERGIES Allergies/Adverse Reactions: Allergies Allergy/AdvReac Type Severity Reaction Status Date / Time sulfamethoxazole Allergy Intermediate Hives Verified 06/25/21 04:44 [From Sulfamethoprim] trimethoprim Allergy Unknown unknown Verified 06/25/21 04:44 [From Sulfamethoprim] - MEDICATIONS Home Medications: Ambulatory Orders Medication Instructions Recorded Confirmed Amlodipine Besylate 10 mg PO DAILY 02/07/13 06/25/21 Carvedilol 25 mg PO BID 02/07/13 06/25/21 Simvastatin [Zocor] 20 mg PO QPM 02/07/13 06/25/21 Ubidecarenone [Co Q-10] 100 mg PO DAILY 02/07/13 06/25/21 Gabapentin [Neurontin] 600 mg PO QPM 08/18/20 06/25/21 Telmisartan [Micardis] 80 mg PO DAILY 08/18/20 06/25/21 hydroCHLOROthiazide 25 mg PO DAILY 08/18/20 06/25/21 [Hydrochlorothiazide] Doxazosin Mesylate [Cardura] 2 mg PO DAILY 06/25/21 06/25/21 Insulin Glargine [Lantus Solostar] 120 units SQ QPM 06/25/21 06/25/21 metFORMIN [Glucophage] 1,000 mg PO BID 06/25/21 06/25/21 - PHYSICAL EXAM AT DISCHARGE General Appearance: positive: No acute distress, Alert. negative: Lethargic Eyes Bilateral: positive: Normal inspection ENT: positive: ENT inspection nml, No signs of dehydration. negative: Purulent nasal drainage Neck: positive: Nml inspection, Trachea midline. negative: Tracheal deviation Respiratory: positive: Chest non-tender, No respiratory distress. negative: Wheezes Cardiovascular: positive: Regular rate & rhythm. negative: Tachycardia, Bradycardia, Systolic murmur Peripheral Pulses: positive: 2+ Abdomen: positive: Non-tender, Nml bowel sounds, No distention. negative: Tenderness Back: positive: Nml inspection Skin: positive: Color nml, Warm, Dry. negative: Cyanosis Extremities: positive: Non-tender, Full ROM, Nml appearance Neurologic/Psychiatric: positive: Oriented x3, Motor nml, Sensation nml, Mood/affect nml. negative: Weakness, Sensory loss, Facial droop, Slurred/abnml speech, Depressed mood/affect - LABS Result Diagrams: 07/01/21 07:31 07/01/21 07:31 - FOLLOW UP Follow Up: You were found to have Covid 19 pneumonia and You were treated for the infection at hospital. You have O2 Desaturation study, You are no required to have oxygen supplement At rest and exertion. you have no respiratory distress. You may follow-up with [facility] COVID-19 recommendations. You may resume your home medication as the schedule. You may follow-up with your PCP in 1 to 2 weeks. Should your symptoms return or worsen, including difficult for breathing and oxygen saturation drop, you may present to the ER or call 911 for help - TIME SPENT Time Spent in Discharge (Minutes): 30
== END 2021-07-01 15:05 | disposition home or self-care (01) | DRG 177 ==
LOC: ED 03:41 → MS2 04:24
PROVIDERS: ADMIT Internal Medicine; ATTEND Nurse Practitioner Gerontology
DX: U07.1 COVID-19 (principal); J12.82 Pneumonia due to coronavirus disease 2019; J96.01 Acute respiratory failure with hypoxia; E10.9 Type 1 diabetes mellitus without complications; E66.9 Obesity, unspecified; I24.8 Other forms of acute ischemic heart disease; G47.30 Sleep apnea, unspecified; N17.9 Acute kidney failure, unspecified; E11.65 Type 2 diabetes mellitus with hyperglycemia; E78.00 Pure hypercholesterolemia, unspecified; E87.6 Hypokalemia; I10 Essential (primary) hypertension; G47.33 Obstructive sleep apnea (adult) (pediatric); T38.3X6A Underdosing of insulin and oral hypoglycemic [antidiabetic] drugs, initial encounter; R60.0 Localized edema; R77.8 Other specified abnormalities of plasma proteins; R94.31 Abnormal electrocardiogram [ECG] [EKG]; Z66 Do not resuscitate; Z79.4 Long term (current) use of insulin; Z79.84 Long term (current) use of oral hypoglycemic drugs; Z79.899 Other long term (current) drug therapy; Z87.891 Personal history of nicotine dependence; Z88.1 Allergy status to other antibiotic agents; Z88.2 Allergy status to sulfonamides
CPT/HCPCS: 36415; 71045; 71275; 80048; 80053; 83036; 83690; 83735; 83880; 84484; 85025; 85379; 86140; 87631; 93005; 96374; 99284; 99285; A9270; J0131; J1650; J1815; J7120; Q9967; 0202U

== ENCOUNTER 2021-08-03 13:33 | Outpatient (CLI) | payer MEDICARE, OTHER ==
--- NOTE | 2021-08-03 14:14 | SLEEP CARE CONSULTATION ---
Information from patient questionnaire entered by Jean Alcala MA. I have reviewed and concur with the information entered by Jean Alcala MA. This document represents the service I personally performed and the decisions made by , Alissa Grubbs ARNP. History of Present Illness Service Date and Time: 08/03/2021 1333 Previous diagnosis: Severe, Obstructive Sleep Apnea-Hypopnea Syndrome AHI: 38.6 (in 2014) Reason for follow up: first compliance (SET UP 06/02/21 , ), first compliance after device update Equipment type: CPAP Equipment obtained from: [employer] (getting supplies as needed) Mask style: Nasal (over the nose) Backup mask available: Yes (old mask) Last cushion change: 1 month Prior sleep studies: Yes Year and Where: 2014 - [facility] Sleep Type of Sleep Study: Polysomnography HPI additional information: KAROL MORRISON was diagnosed to have severe, AHI 38.6, obstructive sleep apnea- hypopnea syndrome and returned today for CPAP therapy first compliance after updating device follow-up. Sleep Study - Results Type of Sleep Study: Polysomnography [facility]: Yes [facility] Compliance Data - Data Reviewed with Patient Average duration of nightly device use: 8 HOURS 23 MINUTE Compliance rate %: 76.7 (compliance for his DS, end date 06-20-21) Current pressure setting (cmH2O): 16-20 Humidity settin Heated hose settin Average residual AHI: 1.7 Average large leak: 15 SECONDS Subjective Patient concerns: reports: dry mouth, nose, throat (does not use humidifier), other (headgear gets loose fast, does not last full 6 months). denies: aerophagia, mask discomfort, air blowing in eyes, mask leak noise, condensation in mask/hose, nasal congestion, epistaxis Observed to snore while using device: No Current pressure setting perceived as: comfortable On therapy, patient: reports: sleeping better, awakening more refreshed, being more awake and alert during the day, more rested overall. denies: drowsiness while driving Initial Orange Sleepiness Scale score: 16 (in 2014) Current Orange Sleepiness Scale score: 12 (2021) Allergies and Home Medications Known drug allergies: Yes () Drug allergies reviewed: Yes Home medication list reviewed: Yes (no changes) Review of Systems Review of systems same as previous: No (covid/pneumonia, hospitalized 2 weeks ago) Physical Exam Vital signs obtained and entered by: RAJIV SÁNCHEZ Blood Pressure: 135/95 (left, 60 pulse) Cuff size: wrist Heart Rate: 68 O2 Saturation: 93 (with N95) Height: 5 ft 11 in Weight: 315 lb Body Mass Index: 43.9 BMI Classification: Morbidly Obese Impression and Plan 1. Obstructive Sleep Apnea-Hypopnea Syndrome, severe, with unknown treatment compliance and unknown apnea control on new device. We have requested access to be able to obtain the compliance download. I am sure he is compliant because he states he cannot sleep without it and will use it for even a 10 minute nap. I will update my note once we receive this information. On CPAP therapy, the patient has better sleep quality and is more rested overall. Patient is very satisfied with his CPAP therapy and has significant improvement of his sleep apnea. He likes his new device and is compliant. Patient's apnea severity and rationale for treatment to reduce apnea, improve sleep quality and reduce cardiovascular and cerebrovascular events was reviewed. I also reviewed the benefit of consistent device use of CPAP for hypertension. Currently patients BMI is 43.9. Obesity increases the risk of apnea, CPAP pressure requirements and overall health risks especially cardiovascular and diabetes. Thus patient is advised to lose weight. Patient was encouraged to lose weight for their overall health and to reduce apneas. * Continue auto CPAP pressure at 16-20 cmH2O * Obtain compliance information for new device * Notify me if snoring with mask or feeling that the pressure is too much or too little * Attempt to lose weight * Call this office if any problems using CPAP * Return for follow up in 1 year, or sooner if concerns arise Counseling Topics: Spare mask, Weight loss health impact Visit Type: In Office Time Spent with Patient (minutes): 20 Provider Statement: I spent 100% of the Face to Face Visit with the patient with greater than 50% spent counseling the patient and coordination of care.
[2021-08-03 14:15] VITALS: BP 135/95
== END 2021-08-03 13:34 | disposition home or self-care (01) ==
LOC: SC 13:33
PROVIDERS: ATTEND Nurse Practitioner Family
DX: G47.33 Obstructive sleep apnea (adult) (pediatric) (principal)
CPT/HCPCS: 99213; G0463; 99212

== ENCOUNTER 2021-08-18 10:31 | Outpatient (CLI) | payer MEDICARE, OTHER ==
--- NOTE | 2021-08-18 14:16 | XRAY Report ---
PROCEDURE: Hip w/Pelvis 2-3V LT INDICATIONS: LT HIP PAIN TECHNIQUE: AP pelvis with lateral view(s) of the left hip(s). COMPARISON: None. FINDINGS: Bones: No fractures or dislocations. Pelvic ring appears intact. No suspicious bony lesions. Mode rate left and mild right hip joint space narrowing and periarticular osteophyte formation. Left femor al head/neck buttressing is present. Soft tissues: The visualized bowel gas pattern is normal. No suspicious soft tissue calcifications. IMPRESSION: 1. Left greater than right hip joint osteoarthritis. 2. 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 This could be further assessed with MR I, if clinically indicated. Reviewed by: Saleem Grady MD on 08/18/2021 2:15 PM PST Approved by: Saleem Grady MD on 08/18/2021 2:15 PM PST Station ID: [id number]
== END 2021-08-18 10:32 | disposition home or self-care (01) ==
LOC: DI 10:31
PROVIDERS: ATTEND Internal Medicine
DX: M16.12 Unilateral primary osteoarthritis, left hip (principal); R93.6 Abnormal findings on diagnostic imaging of limbs

== ENCOUNTER 2022-10-08 13:59 | Outpatient (CLI) | payer MEDICARE, OTHER ==
--- NOTE | 2022-10-08 18:37 | XRAY Report ---
PROCEDURE: Foot 3 View RT INDICATIONS: FOOT DEFORMITY TECHNIQUE: 3 views of the foot were acquired. COMPARISON: None. FINDINGS: Bones: No acute fractures or dislocations. No suspicious bony lesions. Tiny plantar calcaneal enth esophyte. Scattered degenerative changes. Soft tissues: Achilles tendon stripe is not well seen, and tendon tearing is not excluded. IMPRESSION: 1.No acute osseous abnormality. If symptoms persist or there is continued clinical concern, further e valuation with MRI or CT may be helpful. 2.Achilles tendon stripe is not well seen. Recommend correlation for tendon tearing. MRI could be per formed for further evaluation if indicated clinically. Reviewed by: Sergio Saenz MD on 10/08/2022 6:36 PM PDT Approved by: Sergio Saenz MD on 10/08/2022 6:36 PM PDT Station ID: [id number]
== END 2022-10-08 14:00 | disposition home or self-care (01) ==
LOC: DI 13:59
PROVIDERS: ATTEND Internal Medicine
DX: M21.961 Unspecified acquired deformity of right lower leg (principal)

== ENCOUNTER 2023-09-06 11:02 | Outpatient (CLI) | payer MEDICARE, OTHER ==
--- NOTE | 2023-09-06 11:49 | Sleep Patient Instructions ---
Sleep Center Visit Summary - Patient Visit Information Reason for Visit: Annual follow-up - Patient Instructions Additional Instructions: You will continue with CPAP therapy with pressure set at 116-20 cmH2O. A supply prescription will be updated with your DME. I have added a mask refitting. We encourage you to continue to try to lose weight. Please follow up with the sleep care office in 1 year. - Clinic Information Contact: [facility] [address] [place] [address] [email or web address] T: [phone]
--- NOTE | 2023-09-06 11:55 | SLEEP CARE CONSULTATION ---
Information from patient questionnaire entered by Faby Syed. I have reviewed and concur with the information entered by Faby Syed. This document represents the service I personally performed and the decisions made by , Alissa Grubbs ARNP. History of Present Illness Service Date and Time: 09/06/2023 1102 Previous diagnosis: Severe, Obstructive Sleep Apnea-Hypopnea Syndrome AHI: 38.6 (in 2014) Reason for follow up: annual (LAST SEEN 07/2022) Equipment type: CPAP (RESMED Airsense 11, s/u 05/2021) Equipment obtained from: [employer] (getting supplies as needed) Mask style: Nasal (over the nose) Backup mask available: No (out of supplies) Last cushion change: 1 week Prior sleep studies: Yes Year and Where: 2014 - [facility] Type of Sleep Study: Polysomnography HPI additional information: KAROL MORRISON was diagnosed to have severe, AHI 38.6, obstructive sleep apnea- hypopnea syndrome and returned today for CPAP therapy annual follow-up. Sleep Study - Results Type of Sleep Study: Polysomnography Prior sleep studies: Yes Year and Where: 2014 - [facility] CPAP Compliance Data - Data Reviewed with Patient Average duration of nightly device use: 8 HRS 4 MINS Compliance rate %: 100 (09/04/2022-09/03/2023; 365/365 days used) Current pressure setting (cmH2O): 16-20 (avg 16.5) Average residual AHI: 1.7 Central apnea: 0.1 Obstructive apnea: 0 Hypopnea: 1.2 Average large leak: 37.1 L/min Subjective Patient concerns: reports: air blowing in eyes, other (headaches) Initial [place] Sleepiness Scale score: 16 (in 2014) Current [place] Sleepiness Scale score: 17 (09/06/23) Allergies and Home Medications Known drug allergies: Yes (as listed) Drug allergies reviewed: Yes Home medication list reviewed: Yes (no changes) Allergy and home medication list: Allergies sulfamethoxazole [From Sulfamethoprim] Allergy (Intermediate, Verified 09/04/23 08:54) Hives trimethoprim [From Sulfamethoprim] Allergy (Unknown, Verified 09/04/23 08:54) unknown Review of Systems Review of systems same as previous: Yes (NO CHANGE) Physical Exam Vital signs obtained and entered by: FABY Bowles MA Blood Pressure: 150/79 (LEFT) Cuff size: wrist Heart Rate: 73 O2 Saturation: 93 Height: 5 ft 11 in Weight: 365 lb Weight change since last visit: 8 lb gain Body Mass Index: 50.9 BMI Classification: Morbidly Obese Impression and Plan 1. Obstructive Sleep Apnea-Hypopnea Syndrome, severe, with good treatment compliance and good apnea control. On CPAP therapy, the patient has better sleep quality and is more rested overall. He has significant improvement of his sleep apnea and is satisfied with CPAP therapy. In the last month or so he has been having trouble with headache waking him up and air leaking into his eyes. He tries to loosen his headgear to the straps are not causing headaches but then has the air leaking. He is using a nasal cushion, over the nose, and it also causes some soreness on the bridge of his nose. After some discussion, I fit him to a Savanna Nuance Pro, large cushion, with good fit for him to try. I will add a mask refitting to his supply prescription and he can change to this mask if he like how it works out. He is to let me know if he has any other issues with mask or pressure. Otherwise he will follow up next year. Patient's apnea severity and rationale for treatment to reduce apnea, improve sleep quality and reduce cardiovascular and cerebrovascular events was reviewed. I also reviewed the benefit of consistent device use of CPAP for hypertension. 2. Obesity, unspecified. Currently patients BMI is 50.9. Obesity increases the risk of apnea, CPAP pressure requirements and overall health risks especially cardiovascular and diabetes. Thus patient is advised to lose weight. * Continue auto CPAP pressure at 16-20 cmH2O * Mask refitting for Savanna Nuance Pro, size large cushion * Update supply prescription * Notify me if snoring with mask or feeling that the pressure is too much or too little * Attempt to lose weight * Call this office if any problems using CPAP * Return for follow up in 12 months, or sooner if concerns arise Mask provided: Yes Counseling Topics: Spare mask, Weight loss health impact Prescriptions: Device supplies (with mask refitting for nasal pillows or nasal cushion mask. ) Follow up with Sleep Care in: 1 year Visit Type: In Office Time Spent with Patient (minutes): 25 Provider Statement: I spent 100% of the Face to Face Visit with the patient with greater than 50% spent counseling the patient and coordination of care.
[2023-09-06 12:04] VITALS: BP 150/79; O2SAT 93
== END 2023-09-06 11:03 | disposition home or self-care (01) ==
LOC: SC 11:02
PROVIDERS: ATTEND Nurse Practitioner Family
DX: G47.33 Obstructive sleep apnea (adult) (pediatric) (principal); E66.01 Morbid (severe) obesity due to excess calories; Z68.43 Body mass index [BMI] 50.0-59.9, adult
CPT/HCPCS: 99213; G0463; 99212

== ENCOUNTER 2023-12-24 23:22 | Outpatient (CLI) | payer MEDICARE, OTHER | END 2023-12-24 23:59 | disposition EMS.NT | LOC: EMS 23:22 | DX: S99.821A Other specified injuries of right foot, initial encounter (principal); W22.03XA Walked into furniture, initial encounter; Y92.099 Unspecified place in other non-institutional residence as the place of occurrence of the external cause ==